=== PATIENT | female | born 1955 | race Caucasian/White ===

== ENCOUNTER 2024-01-25 07:33 | Outpatient (REF) | payer MEDICARE, SELFPAY ==
--- NOTE | ~2024-01-25 | MM_ITS ---
EXAMINATION: MM SCREENING DIGITAL BREAST TOMOSYNTHESIS, BILATERAL CLINICAL INFORMATION: Screening. Asymptomatic. COMPARISON: Mammography: Available prior examinations TECHNIQUE: Digital breast tomosynthesis is performed in both the craniocaudal and mediolateral oblique views along with computer-aided detection (CAD). Synthesized 2D images are generated from the tomosynthesis. FINDINGS: There are scattered areas of fibroglandular density (ACR BI-RADS breast composition Category b). There are no significant masses, abnormal calcifications, or other abnormalities. MM/MM tomosynthesis screening BI IMPRESSION: No mammographic evidence of malignancy. ASSESSMENT: BI-RADS BI-RADS 1 - Negative RECOMMENDATION: Routine annual mammography screening. 1 year F/U This examination should not preclude the clinical evaluation of a suspicious palpable abnormality. This patient's information was entered into a reminder system with a target due date for their next mammogram. Electronically signed by: Nisreen Ramos DO 02/19/2024 10:02 AM TYR[facility]
== END 2024-01-25 07:34 | disposition home or self-care (01) ==
LOC: HO.MAMMO 07:33
PROVIDERS: PCP Internal Medicine; Visit Provider Internal Medicine
DX: Z12.31 Encounter for screening mammogram for malignant neoplasm of breast (principal)
CPT/HCPCS: 77063; 77067

== ENCOUNTER → 2024-01-25 07:45 | Outpatient (BNV) | payer MEDICARE, SELFPAY | PROVIDERS: PCP Internal Medicine; Visit Provider Internal Medicine | DX: Z12.31 Encounter for screening mammogram for malignant neoplasm of breast (principal) | CPT/HCPCS: 77063; 77067 ==

== ENCOUNTER 2024-04-26 09:53 | Outpatient (AMB) | payer MEDICARE, SELFPAY ==
--- NOTE | 2024-04-26 09:59 | MHC.PC.OV ---
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 Intake Note: New patient visit Insurance Underwriter Sales Required: No Allergies No Known Allergies Allergy (Verified 04/26/24 10:00) Tobacco use date assessed: 04/26/24 Fall risk assessment: No Falls in past year Last assessed Fall Risk: 04/26/24 Dental Screening Dental Screen Date: 04/26/24 Did you have a dental visit in the last 12 months?: Yes Did you have a dental problem in the last 6 months where you did not have access to dental care?: No Was dental information given to patient?: Patient has dentist HPI HPI Comments History of Present Illness Details 69 year old female with a past medical history of type 2 diabetes, hypertension, hyperlipidemia, depression presenting to [facility] Type 2 diabetes: on ozempic 0.5mg, jardiance, metformin. Hemoglobin A1C 6.7%. Goes to [facility] with exam. No neuropathy. No issues with yeast infection. Takes glucose reading once a day fasting-?one touch/freestyle CV: On losartan 25mg daily, pravastatin 40mg daily. Denies chest pain, shortness of breath. Colonoscopy about 7 years ago. Mammogram: 01/25/2024-good No longer seeing technology specialist-stopped pap 65. ROS CONSTITUTIONAL: Denies weight loss, fever and chills. HEENT: Denies changes in vision and hearing. RESPIRATORY: Denies SOB and cough. CV: Denies palpitations and CP GI: Denies abdominal pain, nausea, vomiting and diarrhea. : Denies dysuria and urinary frequency. MSK: Denies new myalgia and joint pain. SKIN: Denies rash and pruritus. NEUROLOGICAL: Denies headache PSYCHIATRIC: Denies recent changes in mood. PHYSICAL EXAM: GENERAL: Alert and oriented x 3. NAD EYES: EOMI. Anicteric. HENT: Moist mucous membranes. No scleral icterus. No cervical lymphadenopathy. LUNGS: Clear to auscultation bilaterally. CARDIOVASCULAR: Regular rate and rhythm. No murmur. No JVD. ABDOMEN: Soft, non-tender +bs EXTREMITIES: No edema. Non-tender. SKIN: No rashes or lesions. Warm. NEUROLOGIC: No focal neurological deficits. CN II-XII grossly intact PSYCHIATRIC: Cooperative. 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 1. Little interest or pleasure in doing things: not at all 2. Feeling down, depressed, or hopeless: not at all 3. Trouble falling or staying asleep, or sleeping too much: not at all 4. Feeling tired or having little energy: not at all 5. Poor appetite or overeating: not at all 6. Feeling bad about yourself - or that you are a failure or have let yourself or your family down: not at all 7. Trouble concentrating on things, such as reading the newspaper or watching television: not at all 8. Moving or speaking so slowly that other people could have noticed. Or the opposite - being so fidgety or restless that you have been moving around a lot more than usual: not at all 9. Thoughts that you would be better off or of hurting yourself in some way: not at all Total score: 0 Depression Screening Interpretation: Negative Depression Screening Done: Yes 74254 - PHQ-9 Billing: Yes Source: Developed by Drs. Sid Figueroa, Merced Horton, Leon Harrington and colleagues, with an educational arcenio from [employer] Thrive Questionnaire Date Thrive assessed: 04/23/24 I am a: Patient What is your living situation today?: I have a steady place to live Within the past 12 months, did the food you bought not last and you didn't have the money to get more?: Never true Within the past 12 months, did you worry whether your food would run out before you got money to buy more?: Never true Do you have trouble paying for medicines?: No Do you have trouble getting transportation to medical appointments?: No Do you have trouble paying your heating and electricity bill?: No Do you have trouble taking care of your child, family member or friend?: No Do you have trouble with day-to-day activities such as bathing, preparing meals, shopping, managing finances, etc.?: No Are you currently unemployed and looking for a job?: No Are you interested in more education?: No Currently or been in a relationship where the following occur: No concerns reported THRIVE Score: 0 AUDIT C Alcohol Use Questionnaire (AUDIT-C) 1. How often do you have a drink containing alcohol?: Never Total Score: 0 TERRENCE-7 AMB Questionnaire TERRENCE-7 Date TERRENCE - 7 assessed: 04/26/24 Feeling nervous, anxious, or on edge: 0 = Not at all Not being able to stop or control worryin = Not at all Worrying too much about different things: 0 = Not at all Trouble relaxin = Not at all Being so restless that it is hard to sit still: 0 = Not at all Becoming easily annoyed or irritable: 0 = Not at all Feeling afraid as if something awful might happen: 0 = Not at all Total TERRENCE-7 score (0-4 normal; 5-9 mild; 10-14 moderate; 15-21 severe): 0 Source: Developed by Drs. Sid Figueroa, Merced Horton, Leon Harrington and colleagues, with an educational arcenio from [employer] TERRENCE-7 Assessment Billing TERRENCE-7 Assessment Tool: TERRENCE-7 Assessment 69597 Physical exam (Primary Care) Vital Signs: Last Vital Signs Pulse 96 04/26/24 10:07 BP 116/78 04/26/24 10:07 Pulse Ox 98 04/26/24 10:07 Oxygen Delivery Method Room Air 04/26/24 10:07 BMI result Body Mass Index 20.4 Tobacco/Smoking Status: Tobacco use Status Tobacco use date assessed 04/26/24 04/26/24 10:13 Patient Tobacco Use Status Never used Tobacco 04/26/24 10:13 e-Cigarette/Vaping Use Never Used 04/26/24 10:13 Depression Screening Interpretation: Negative Thrive Assessment: Date of Thrive Assessment Date Thrive assessed 04/23/24 04/26/24 10:13 Currently or been in a relationship where the following occur: No concerns reported Results AMB Hemoglobin A1c AMB Hemoglobin A1c 6.7 % Last Edit by Coral Nobles CMA on 04/26/24 10:22 Coding Level of Care Code New Pt Level 4 (14038) Complex EM visit Add On G2211 Diagnoses Type 2 diabetes mellitus without complication, without long-term current use of insulin E11.9 Diabetes mellitus medical terminologist insulin use: without detention use Diabetes mellitus complication status: without complication Primary hypertension I10 Hypertension type: primary hypertension Mixed hyperlipidemia E78.2 Hyperlipidemia type: mixed hyperlipidemia Additional Codes TERRENCE-7 Assessment Billing - TERRENCE-7 Assessment Tool: TERRENCE-7 Assessment 55958 ([id number]) PHQ-9 - 70154 - PHQ-9 Billing: Yes ([id number]) Assessment & Plan Assessment & Plan (1) Type 2 diabetes mellitus: Code(s): E11.9 - Type 2 diabetes mellitus without complications Category: Medical Qualifiers: Diabetes mellitus medical terminologist insulin use: without detention use Diabetes mellitus complication status: without complication Qualified Code(s): E11.9 - Type 2 diabetes mellitus without complications Plan: controlled, continue current medication (2) Hypertension: Code(s): I10 - Essential (primary) hypertension Category: Medical Qualifiers: Hypertension type: primary hypertension Qualified Code(s): I10 - Essential (primary) hypertension Plan: controlled on current medication (3) Hyperlipidemia: Code(s): E78.5 - Hyperlipidemia, unspecified Category: Medical Qualifiers: Hyperlipidemia type: mixed hyperlipidemia Qualified Code(s): E78.2 - Mixed hyperlipidemia Plan: continue statin therapy Plan 69 year old to establish care. past medical, surgical, social and family history reviewed. Chart updated. Orders: Orders AMB Hemoglobin A1c Today E11.9 - Type 2 diabetes mellitus without complications Comprehensive Met. Panel 3 Months E11.9 - Type 2 diabetes mellitus without complications, E78.5 - Hyperlipidemia, unspecified, I10 - Essential (primary) hypertension Lipid Panel 3 Months E11.9 - Type 2 diabetes mellitus without complications, E78.5 - Hyperlipidemia, unspecified, I10 - Essential (primary) hypertension Hemoglobin A1c 3 Months E11.9 - Type 2 diabetes mellitus without complications, E78.5 - Hyperlipidemia, unspecified, I10 - Essential (primary) hypertension Complete Blood Count Auto Diff 3 Months E11.9 - Type 2 diabetes mellitus without complications, E78.5 - Hyperlipidemia, unspecified, I10 - Essential (primary) hypertension Microalbumin, Random (w Creat) 3 Months E11.9 - Type 2 diabetes mellitus without complications, E78.5 - Hyperlipidemia, unspecified, I10 - Essential (primary) hypertension Medications: New semaglutide 0.5 mg (0.736 mL) subcut QWEEK 3 mL 3RF
[2024-04-26 10:07] VITALS: BP 116/78; PULSE 96; O2SAT 98; BMI 20.4
== END 2024-04-26 10:40 | disposition home or self-care (01) ==
PROVIDERS: PCP Internal Medicine; Visit Provider Internal Medicine
DX: E11.9 Type 2 diabetes mellitus without complications (principal); I10 Essential (primary) hypertension; E78.2 Mixed hyperlipidemia

== ENCOUNTER → 2024-04-26 09:53 | Outpatient (BNVA) | payer MEDICARE, SELFPAY | PROVIDERS: PCP Internal Medicine; Visit Provider Internal Medicine | DX: E11.9 Type 2 diabetes mellitus without complications (principal); I10 Essential (primary) hypertension; E78.2 Mixed hyperlipidemia; Z79.899 Other long term (current) drug therapy | CPT/HCPCS: 83036; 96127; 99202 ==

== ENCOUNTER 2024-07-08 07:56 | Outpatient (RCR) | payer MEDICARE, SELFPAY ==
--- NOTE | 2024-07-08 08:27 | MHC.OT.DC ---
[address] [phone] F: [phone] Occupational Therapy Discharge Note Patient Name: Catherine Ponce Provider: Jane Brady Diagnosis: L Ring finger fasciectomy Date of Surgery: 06/08/24 Date of Evaluation: 06/10/24 Date of Discharge: Treatments to Date: 9 Cancellations to Date: No Shows to Date: Discharge Status: Achieved Goals Discharge Summary: Pt tolerated therapy well ; [id number]; she has met her therapy goals and agrees w/ today's d/charge. Pt was a pleasure to work with! Electronically Signed By: Ashley Hoang OTR/L Reviewed/agree with student documentation: Therapist: Please Sign and return to therapist, thank you for your referral.
== END 2024-07-08 09:09 | disposition home or self-care (01) ==
LOC: HO.OT 07:56
PROVIDERS: PCP Internal Medicine; Visit Provider Orthopaedic Surgery
DX: Z98.890 Other specified postprocedural states (principal)
CPT/HCPCS: 29130; 97035; 97110; 97140; 97166; 97530; 97535; 97760

== ENCOUNTER 2024-07-27 08:03 | Outpatient (REF) | payer MEDICARE, SELFPAY ==
--- OUTSIDE RECORDS SUMMARY | 2024-07-27 08:16 | XMS_ITS | Data Portability ---
Author Organization [facility] [address] Address [address] [place] [address] Care Team Providers Care Hvac Engineering Technician Name Role Phone DARINEL CHOWDHURY Primary Care Provider [phone] Assessment No assessment recorded. Plan of Treatment Reminders Order Date Submit Date Provider Last Modified By Organization Details Last Modified Time Details Appointments None recorded. Lab None recorded. Referral gynecologis t referral 2022 023 [email or web address] Not available 3 09:17:23 Procedures None recorded. Surgeries None recorded. Imaging None recorded. Medication Orders None recorded. Patient TargetsNo targets recorded. Patient Instructions Encounter Date Encounter Id Patient Instructions Last Modified By Organization Details Last Modified Time 11/26/2022 [id number] Skin Cyst: Care Instructions [email or web address] Not available 11/26/2022 09:15:35 Reason for Referral Junior Systems Analyst Referral for Ep idermoid cyst of skin Right Labia Cyst - Appears Benign. Follow up if does not open on it's own. Referring Physician: Alisson Corbett, Urgent Care, Encounter Date: 11/26/2022 Problems Name Problem SNOMED Code Status Onset Date Resolution Date Notes Provider Name and Address Organization Details Recorded Time Diabetes mellitus 98154859 Active 2022 MANNY Aguayo [facility] 3 08:36:43 Hypertensive disorder 07908619 Active 2022 MANNY Aguayo [facility] 3 08:36:52 Problem Notes None recorded. Medical Equipment None Reported. Allergies No known drug allergies Medications Name Sig Start Date Stop Date Status Note LastModified by Organization Details LastModified Time lisinopril active Not Available Not Av ailable Not Available pravastatin active Not Available Not A vailable Not Available glipizide active Not Available Not Rachel ilable Not Available metformin active Not Available Not Rachel ilable Not Available Victoza 2-Berlin active Not Available Not Available Not Available Vitals Date Recorded Body height Body mass index (BMI) Body weight Pain severity - 0-10 verbal numeric rating [Score] - Reported Respiratory rate Heart rate Oxygen saturation Oxygen saturation in Arterial blood by Pulse oximetry Body temperature Systolic blood pressure Diastolic blood pressure Provider Name and Address Organization Details Last Updated DateTime 3 161.29 cm 24.2 kg/m2 24312.3 4 g 0 18 /min 101 /min 96 % 96 % 98.4 [degF] 144 mm[Hg] 90 mm[Hg] Jordana Carbajal PA [facility] 3 08:39:37 Date Recorded Systolic blood pressure Diastolic blood pressure Provider Name and Address Organization Details Last Updated DateTime 11/26/2022 130 mm[Hg] 86 mm[Hg] MANNY PAVON [facility] [place], [address], PA - [facility] 11/26/2022 09:15:56 Social History Question Answer Notes LastModified by Organizat ion Details LastModified Time Tobacco Smoking Status Former Smoker Jordana coffey PA [facility] 11/26/2022 08:37:59 What Is Your Level Of Alcohol Consumption? Occasional Information not available 11/26/2022 How Many Times Per Week Do You Consume Alcohol? 1-2 Times Per Week Information not available 11/26/2022 When Did You Quit Smoking? 16+yearssincel astcigarette Information not available 11/26/2022 Do You Use Any Illicit Or Recreational Drugs? No Information not available 11/26/2022 Have You Recently Traveled Abroad? No Information not available 11/26/2022 Do You Or Have You Ever Used Any Other Forms Of Tobacco Or Nicotine? No Information not available 11/26/2022 Sex: Unknown Functional Status None recorded. Mental Status None recorded. Family History Relationship Description Onset Age of this Age Resolved Age Notes LastModified by Organization Details LastModified Time Sister Malignant tumor of breast [email or web address] Not available 2022 08:37:08 Father Myocardial infarction [email or web address] Not available 11/26 08:37:34 Medical History No medical history recorded. Gynecological HistoryNo gynecological history recorded. Obstetrics History GPAL:G 0 P 0 0 0 0 Immunizations Vaccine Type Date Status Note Provider Nam e and Address Organization Details Recorded Time zoster recombinant 2 completed Jordana Monfette null, PA - [facility] 11/26/2022 08:35:08 COVID-19, mRNA, LNP-S, PF, 30 mcg/0.3 mL dose 1 completed Jordana Monfette null, PA - [facility] 11/26/2022 08:35:08 COVID-19, mRNA, LNP-S, PF, 30 mcg/0.3 mL dose 1 completed Jordana Monfette null, PA - [facility] 11/26/2022 08:35:08 COVID-19, mRNA, LNP-S, PF, 30 mcg/0.3 mL dose 1 completed Jordana Monfette null, PA - [facility] 11/26/2022 08:35:08 COVID-19, mRNA, LNP-S, PF, 30 mcg/0.3 mL dose 1 completed Jordana Monfette null, PA - [facility] 11/26/2022 08:35:08 COVID-19, mRNA, LNP-S, PF, 30 mcg/0.3 mL dose 1 completed Jordana Monfette null, PA - [facility] 11/26/2022 08:35:08 COVID-19, mRNA, LNP-S, PF, 30 mcg/0.3 mL dose 2 completed Jordana Monfette null, PA - [facility] 11/26/2022 08:35:08 COVID-19, mRNA, LNP-S, PF, 30 mcg/0.3 mL dose, tessie-sucrose 2 completed Jordana Monfette null, PA - [facility] 11/26/2022 08:35:08 COVID-19, mRNA, LNP-S, bivalent, PF, 50 mcg/0.5 mL or 25mcg/0.25 mL dose 2 completed Jordana Monfette null, PA - [facility] 11/26/2022 08:35:08 pneumococcal polysaccharide PPV23 2 completed Jordana Monfette null, PA - [facility] 11/26/2022 08:35:08 pneumococcal polysaccharide PPV23 0 completed Jordana Monfette null, PA - [facility] 11/26/2022 08:35:08 Tdap 0 completed Jordana Monfette null, PA - [facility] 11/26/2022 08:35:08 Tdap 0 completed Jordana Monfette null, PA - [facility] 11/26/2022 08:35:08 Pneumococcal conjugate PCV 13 2 completed Jordana Monfette null, PA - [facility] 11/26/2022 08:35:08 zoster live 6 completed Jordana Monfette null, PA - [facility] 11/26/2022 08:35:08 Influenza, split virus, trivalent, preservative 8 completed Jordana Monfette null, PA - [facility] 11/26/2022 08:35:08 Influenza, split virus, trivalent, preservative 2 completed Jordana Monfette null, PA - [facility] 11/26/2022 08:35:08 Past Encounters Encounter ID Performer Location Encounter Start Date Encounter Closed Date Diagnosis/Indication Diagnosis SNOMED-CT Code Diagnosis ICD10 Code Diagnosis Note [id number] [address] [address] 11/16/2021 08:17:34 11/16/2021 09:20:57 [id number] MANNY PAVON [address] [address] [address] 11/26/2022 08:10:16 11/26/2022 09:17:23 Epidermoid cyst of skin 263042897 L72.0 In the right labia majora. This is not a Bartholin gland cyst. In this area, we would want to try allow this to be expressed on it's own. To do this I would suggest:1. Bathtub hot water with warm Epsen salts or a heating pad.2. After about 20 minutes of heat you can lightly try to express this.3. Don't squeeze hard.4. When it opens you probably will get a white stringy material that comes out. This is the solidified sweat we were talking about.5. Your skin appears normal - no ulceration or abnormal color. I would suggest setting up an appointmen t with a Gynecologi st so they can evaluate the area and potential I&D the area if it does now open. These types of issues may continue to grow in size as time goes on because the sweat glands will continue to make sweat. Sometimes at a point when they get larger - they will get painful and develop an infection. Please don't hesitate to call me if you have any questions. I suggest going to the ER if you develop:1. Significan t pain or swelling2. Fever > 100.73. Lymph node in your groin that is painful.4. Inability to urinate. Thank you for using [employer] [facility]! Health Concerns Section Related Observation LastModified by Organization Yoni melendez LastModified Time None Recorded Concern Status LastModified by Organization Details LastModified Time None Recorded Advance Directives Directive None Recorded Payers Encounter Date Sequence Insurance Name Policy Number Policy Zamarripa Covered Member ID Zamarripa Member ID Guarantor Name 11/16/2021 1 [facility] (MEDICARE REPLACEMENT/A DVANTAGE - HMO) [id number] [id number] Catherine Smcarrie 11/16/2021 2 MEDICARE B-[place]: [facility] [employer] Catherine Ponce [id number] Catherine carrie 11/26/2022 1 [facility] (MEDICARE REPLACEMENT/A DVANTAGE - HMO) [id number] Catherine Sumner carrie [id number] Catherine carrie 11/26/2022 2 MEDICARE B-[place]: [facility] [employer] Catherine Sumner carrie [id number] Catherine Ponce Notes Date Note Type Note Provider Name and Address Organization Details Recorded Time 3 text/html Vaginal DischargeReported bypatient.source of patient informationInformation obtained from patient Location:vaginal Quality:No pain Onset/Timing:sudden Context:not sexually active; no prior history of STDs Modifying Factors:Did try warm water. Associated Symptoms:no flank pain; no blood in the urine; no pain during urination; no vaginal discharge; no urgencyNotes:The patient states she was taking a shower about 4 days ago and felt a lump in the end of the labia close to the perinum. Does not have any pain or discharge. The patient reports she has not had this in the past. The patient still has ovary and uterus. Actually no surgeries. Sister did pass away from breath cancer. Last pap was 5 years. Never had any abnormal paps. No vaginal discharge or bleeding. No urinary symptoms. MANNY PAVON [facility] [place], [address], PA - [facility] 11/26/2022 09:18:25 OBGyn Episode No OBEpisode recorded.
--- OUTSIDE RECORDS SUMMARY | 2024-07-27 08:16 | XMS_ITS | Clinical Summary ---
Author Organization [facility] Address [address] [place] [address] Phone Care Team Providers Care Automation Consultant Name Role Phone Simran Plaza MD Primary Care Provider [phone] Allergies No known active allergies Medications Aspirin Buf,CaCarb-MgCar b-MgO, 81 MG tablet Take 81 mg by mouth 1 (one) time each day Active glipiZIDE (GLUCOTROL) 10 MG tablet Take one tablet by mouth twice a day before meals 11/01/2020 Active liraglutide (VICTOZA) 18 MG/3ML injection Inject 0.6 mg under the skin 11/20/2020 Active metFORMIN (GLUCOPHAGE) 1000 MG tablet Take 1 tablet by mouth 2 (two) times a day with meals 10/11/2020 Active pravastatin (PRAVACHOL) 40 MG tablet Take 1 tablet by mouth 1 (one) time each day 10/11/2020 Active prednisoLONE acetate (PRED FORTE) 1 % ophthalmic suspension 03/26/2021 Active losartan (Cozaar) 25 MG tablet Take 1 tablet (25 mg total) by mouth 1 (one) time each day 30 tablet 11 03/28/2021 Active Active Problems Problem Noted Date Diagnosed Date Family history of malignant neoplasm of breast in first degree relative 03/30/2020 Type 2 diabetes mellitus 03/27/2020 Overview (01/17/2021): Mild nonproliferative diabetic retinopathy noted on bilateral eye examination March 2020 Dyslipidemia 08/13/2018 Immunizations Name Administration Dates Next Due Influenza TIV (IM) 03/15/2018 Pfizer SARS-COV-2 07/04/2020,06/03/2020 Pneumococcal Polysaccharide 05/09/2020, 2 Tdap 05/09/2020,01/29/2010 Zoster 06/05/2015 Family History Medical History Relation Comments Diabetes Brother Cancer Sister Relation Status Comments Brother Sister Social History Tobacco Use Types Packs/Day Years Used Date Smoking Tobacco: Former Smokeless Tobacco: Never Alcohol Use Standard Drinks/Week Comments Yes 0 (1 standard drink = 0.6 oz pur e alcohol) Comments Unknown Sex and Gender Information Value Date Recorded Sex Assigned at Not on file Legal Sex Female 1:14 PM EDT Gender Identity Not on file Sexual Orientation Not on file Last Filed Vital Signs Vital Sign Reading Time Taken Comments Blood Pressure 142/76 03/28/2021 4:12 PM EDT Pulse 78 03/28/2021 4:12 PM EDT Temperature - - Respiratory Rate - - Oxygen Saturation 98% 03/28/2021 4:12 PM EDT Inhaled Oxygen Concentration - - Weight 60.8 kg (134 lb) 03/28/2021 4:12 PM EDT Height 165.1 cm (5' 5 ) 03/28/2021 4:12 PM EDT Body Mass Index 22.3 03/28/2021 4:12 PM EDT Plan of Treatment Health Maintenance Due Date Last Done Comments Breast Cancer Screening 1955 Colorectal Cancer Screening: Annual FOBT 2004 Colorectal Cancer Screening: Colonoscopy 2004 Colorectal Cancer Screening: Sigmoidoscopy 2004 Diabetes: Ophthalmology Exam 12/07/2020 Diabetes: Pedal Pulse Checked 12/07/2020 Diabetes: Sensory Foot Exam 12/07/2020 Diabetes: Visual Foot Exam 12/07/2020 Diabetes: Hemoglobin A1C 04/16/202101/14/2 021, 09/10/2020 Pneumococcal Vaccine: 65+ Years (2 of 2 - PCV) 05/09/2021 05/09/2020, 07/08/2011 Influenza Vaccine (#1) 2024 03/15/2018 Hepatitis B Vaccine Aged Out No longe r eligible based on patient's age [id number] [facility] MEDICARE [facility] MEDICARE Care Teams Automation Consultant Relationship Specialty Start Date End Date Simran Plaza MD [address] [place] [address] PCP - General Internal Medicine 02/25/21
--- OUTSIDE RECORDS SUMMARY | 2024-07-27 08:16 | XMS_ITS | Clinical Summary ---
Author Organization 175 [facility] Address [address] [place] [address] Phone Care Team Providers Care Plastic Jig And Fixture Builder Name Role Phone Denise Gerard MD Primary Care Provider [phone] Allergies No known active allergies Medications pravastatin (PRAVACHOL) 40 mg tablet Take 1 tablet (40 mg total) by mouth 1 (one) time each day. 4 Active losartan (COZAAR) 25 mg tablet Take 1 tablet (25 mg total) by mouth 1 (one) time each day. 4 Active metFORMIN (GLUCOPHAGE) 1,000 mg tablet Take 1 tablet (1,000 mg total) by mouth 2 (two) times a day with meals. 3 Active lancets (OneTouch Delica Plus Lancet) 33 gauge USE TO TEST SUGARS ONCE DAILY 3 Active blood sugar diagnostic (OneTouch Verio test strips) test strip USE TO TEST SUGARS ONCE DAILY 3 Active pen needle, diabetic (BD Ultra-Fine Short Pen Needle) 31 gauge x 5/16 needle USE ONE PEN NEEDLE DAILY TO ADMINISTER VICTOZA 3 Active blood-glucose meter (ONETOUCH VERIO FLEX START MISC) 1 Device by Not Applicable route. 3 Active aspirin 81 mg EC tablet Take 1 tablet (81 mg total) by mouth. Active acetaminophen (TYLENOL 8 HOUR) 650 mg 8 hr tabletIndication s:Palmar fascial fibromatosis (dupuytren) Take 1 tablet (650 mg total) by mouth every 8 (eight) hours if needed for mild pain. Do not crush, chew, or split. 30 tablet 4 Active oxyCODONE (ROXICODONE) 5 mg immediate release tabletIndication s:Palmar fascial fibromatosis (dupuytren) Take 1 tablet (5 mg total) by mouth every 6 (six) hours if needed for severe pain for up to 6 doses. Max Daily Amount: 20 mg 6 tablet 4 Active Jardiance 10 mg tablet TAKE 1 TABLET BY MOUTH DAILY 100 tablet 5 Active semaglutide (OZEMPIC) 0.25 mg or 0.5 mg (2 mg/3 mL) injection penIndications:T ype 2 diabetes mellitus with other specified complication, without long-term current use of insulin ([facility]) Inject 0.5 mg under the skin every 7 (seven) days. 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 March 2020 Dyslipidemia 08/13/2018 Encounters Date Type Department Care Team Description 06/20/2024 8:45 AM EST Office Visit Orthopedic Surgery - [place] 175 [facility] [address] [place] [id number] Antonieta Zaman PA Surgery follow-up (Primary Dx) 06/08/2024 1:18 PM EST Anesthesia Event [address] [id number] Surya Layton MD Abrokwah, Foster Myles G, SEUN 06/08/2024 12:15 PM EST - 06/08/2024 1:45 PM EST Surgery [facility] OR [address] [place] [phone] Jane Brady MD RELEASE PALMAR FASCIA LEFT [[id number] (CPT??)] 06/08/2024 10:22 AM EST - 06/08/2024 4:55 PM EST Hospital Encounter [facility] Main OR [address] [place] [address] Jane Brady MD Palmar fascial fibromatosis (dupuytren); Palmar fascial fibromatosis (dupuytren) Discharge Disposition: Home or Self Care 05/31/2024 9:30 AM EST Consult Orthopedic Surgery - [place] 175 [facility] [address] [place] [address] Jane Brady MD Palmar fascial fibromatosis (dupuytren) (Primary Dx) from Last 3 Months Immunizations Name Administration Dates Next Due Influenza trivalent, with pr eservative (Fluzone; Afluria) 6mo and older 03/15/2018 Influenza, Unspecified 04/09/2023,03/06/2022, [employer] SARS-CoV-2 COVID-19, mRNA, LNP-S, preservative free 03/26/2022,09/30/2021,03/13/2021 Pneumococcal conjugate 13 va lent (Prevnar 13, PCV13) 2mo and older 01/08/2022 Pneumococcal polysaccharide 23 valent (Pneumovax 23) 2yo and older 05/09/2020,07/08/2011 Tdap Tetanus diptheria acell ular pertussis (Boostrix; Adacel) 7yo and older 05/09/2020,01/29/2010 Zoster Live 06/05/2015 Zoster recombinant (Shingrix ) 19yo and older 03/26/2022 Surgical History Surgery Date Site/Laterality Comments OTHER SURGICAL HISTORY PROCEDURE: DENIES PREVIOUS SURGERY COLONOSCOPY Medical History Medical History Date Comments Diabetes mellitus type 2, co ntrolled, without complications (CMS/HCC) DX:Diabetes mellitus t ype 2, controlled, without complications (HCC) Dyslipidemia DX:Dyslipidemia Uncontrolled type 2 diabetes mellitus with hyperglycemia (CMS/HCC) 02/24/2019 DX:Uncontrolled type 2 di abetes mellitus with hyperglycemia (HCC) Dupuytren's disease of finge r with contracture LEFT RING FINGER Family History Medical History Relation Name Comments Diabetes Brother ? pancreatic ca Breast cancer Sister Diabetes Uncle Colon cancer Neg Hx Ovarian cancer Neg Hx Pancreatic cancer Neg Hx Prostate cancer Neg Hx Uterine cancer Neg Hx Relation Name Status Comments Brother Sister Uncle Social History Tobacco Use Types Packs/Day Years Used Date Smoking Tobacco: Former Cigarettes 1 7 0 06/01/1968 - 06/01/1975 Smokeless Tobacco: Never Alcohol Use Standard Drinks/Week Comments Not Currently 0 (1 standard drink = 0.6 oz pur e alcohol) Comments No Sex and Gender Information Value Date Recorded Sex Assigned at Female 06/07/2024 8:29 AM EST Legal Sex Female 6:47 AM EST Gender Identity Female 06/07/2024 8:29 AM EST Sexual Orientation Straight 06/08/2024 10 :21 AM EST Obstetrics History Last Filed Vital Signs Vital Sign Reading Time Taken Comments Blood Pressure 123/80 06/08/2024 3:50 PM EST Pulse 90 06/08/2024 3:50 PM EST Temperature 36.2 ??C (97.2 ??F) 06/08/2024 3:22 PM ES T Respiratory Rate 20 06/08/2024 3:50 PM EST Oxygen Saturation 96% 06/08/2024 3:50 PM EST Inhaled Oxygen Concentration - - Weight 50.8 kg (112 lb) 06/20/2024 8:30 AM EST Height 162.6 cm (5' 4.02 ) 06/20/2024 8:30 AM ES T Body Mass Index 19.22 06/20/2024 8:30 AM EST Plan of Treatment Upcoming Encounters Date Type Department Care Team (Late st Contact Info) Description 08/02/2024 9:45 AM EST Office Visit Orthopedic Surgery - [place] [address] [phone] Jane Brady MD [address] [phone] Health Maintenance Due Date Last Done Comments Diabetes: Annual GFR (Glomerular Filtration Rate) 1955 RSV Immunization Patients 60+ Years Old (1 - Risk 60-74 years 1-dose series) 2015 Medicare Annual Wellness Visit 05/10/2022 Social Influencers of Health Screening 05/10/2022 Hypertension/CHF/CAD Annual BMP Blood Test 05/11/2022 Zoster Vaccines (3 of 3) 05/21/2022 03/26/2022, 09/2015 Diabetes: Annual Urine Albumin-Creatinine Ratio (uACR) 09/02/2023 09/01/2022 Depression Screening 11/29/2023 11/28/2022 Diabetes: Annual Foot Exam 01/20/2024 01/19/2023 Diabetes: Blood Sugar Control Test (HGBA1C) 01/25/2024 07/27/2023 Influenza Vaccine (#1) 2024 , 05/01/2022, 03/06/2022, Additional history exists Diabetes: Annual Retina Eye Exam 04/08/2024 04/08/2023 Breast Cancer Screening 01/16/2025 01/17/20 23, 01/13/2023, 01/08/2022, Additional history exists Falls Risk Assessment 06/08/2025 06/08/2024 Colorectal Cancer Screening: Colonoscopy 01/07/2027 01/07/2017 Cholesterol Screening (Lipid Panel) 04/24/2028 04/24/2023 DTaP,Tdap,and Td Vaccines (3 - Td or Tdap) 05/09/2030 05/09/2020, 01/29/2010 Osteoporosis Screening (Bone Density Screening) 09/13/2033 09/14/2023, 03/27/2021 Hepatitis C Screening Addressed 01/03/2019 Overri dden with the intention of not completing the topic Pneumococcal Vaccine: 50+ Years Completed 01/08/2022, 05/09/2020, 07/08/2011 COVID-19 Vaccine Completed 2024, , 03/26/2022, Additional history exists HIB Vaccines Aged Out No longer eligi ble based on patient's age to complete this topic HPV Vaccines Aged Out No longer eligi ble based on patient's age to complete this topic Hepatitis A Vaccines Aged Out No long er eligible based on patient's age to complete this topic Hepatitis B Vaccines Aged Out No long er eligible based on patient's age to complete this topic IPV Vaccines Aged Out No longer eligi ble based on patient's age to complete this topic MMR Vaccines Aged Out No longer eligi ble based on patient's age to complete this topic Meningococcal ACWY Vaccine Aged Out N o longer eligible based on patient's age to complete this topic Meningococcal B Vacine Aged Out No lo nger eligible based on patient's age to complete this topic RSV Immunization Patients Under 20 months Aged Out No longer eligible based on patient's age to complete this topic Varicella Vaccines Aged Out No longer eligible based on patient's age to complete this topic Procedures Procedure Name Priority Date/Time Associated Diagnosis Comments TISSUE EXAM Routine 06/08/2024 1:49 PM EST Palmar fascial fibromatosis (dupuytren) FL FASCIECTOMY PARTIAL PALMAR W/RELEASE SINGLE DIGIT INCL PROXIMAL IPJ 06/08/2024 1:17 PM EST Palmar fascial fibromatosis (dupuytren) Case Notes Nerve block Supraclavicular,LEAD HAND TH AN NERVE BLOCK AXILLARY (NO CHARGE) Routine 06/08/2024 1:05 PM EST TH AN NERVE BLOCK AXILLARY (CHARGE) Routine 06/08/2024 1:05 PM EST POCT GLUCOSE BLOOD Routine 06/08/2024 10 :40 AM EST DXA BONE DENSITY STUDY 1+ SITS AXIAL SKEL Routine 09/14/2023 9:58 AM EDT Encounter for screening for osteoporosis DIAGNOSTIC MAMMOGRAPHY WITH CAD UNILATERAL Routine 01/16/2023 2:52 PM EDT Other abnormal and inconclusive findings on diagnostic imaging of breast from Last 3 Months or Most Recently Relevant to Health Maintenance Results * Tissue exam (06/08/2024 1:49 PM EST) Final Diagnosis Soft tissue, left hand-Fasciotom y/Fasciectomy: -FIBROMATOSIS, CONSISTENT WITH DUPUYTREN CONTRACTURE 06/09/2024 2:16 PM EST [facility] Gross Description A. Hand, Left, dupuytren's fascia left hand: Labeled Dupuytren's hand L . Received in formalin is a 1.8 x 1.8 x 0.3 cm aggregate of irregular pink-white dense fibrous tissue. The larger fragments are sectioned. The cut surfaces are comprised of dense gerardo-white fibrous tissue. The specimen is entirely submitted in one cassette, multiple pieces. MATHIEU 06/09/2024 2:16 PM EST [facility] Disclaimer Unless otherwise specified, all tissue is 10% NB formalin fixed and paraffin embedded. 06/09/2024 2:16 PM EST [facility] Tissue Structure of left hand / Unknown 06/08/2024 1:49 PM EST 06/08/2024 3:58 PM EST us Jane Brady MD LAB PATHOLOGY ORDERABLES Aline mercedes Result [facility] ([facility]) [facility] [address] [place] [address], [place] [phone] * TH AN NERVE BLOCK AXILLARY (CHARGE), TH AN NERVE BLOCK AXILLARY (NO CHARGE) (06/08/2024 1:05 PM EST) Narrative Xander Valladares MD - 06/08/2024 1:05 PM EST Xander Valladares MD ? 06/08/2024 ??1:18 PM Peripheral Block Patient location during procedure: pre-op Start time: 06/08/2024 1:05 PM End time: 06/08/2024 1:16 PM Reason for block: post-op pain management Staffing Performed: anesthesiologist Anesthesiologist: Xander Valladares MD Preanesthetic Checklist Completed: patient identified, IV checked, site marked, risks and benefits discussed, surgical consent, monitors and equipment checked, pre-op evaluation and timeout performed Peripheral Block Patient position: supine Prep: ChloraPrep Patient monitoring: continuous pulse ox and heart rate (NIBP) Block type: axillary Laterality: left Injection technique: single-shot Guidance: ultrasound guided and Ultrasound image saved to chart Local infiltration: lidocaine Infiltration strength: 1 % Dose: 5 mL Needle Needle type: Quincke Needle gauge: 21 G Needle length: 10 cm Needle localization: ultrasound guidance (Ultrasound with tip visualized throughout) Assessment Injection assessment: negative aspiration for heme, no paresthesia on injection, incremental injection with negative aspiration q 5ml and local visualized surrounding nerve on ultrasound Paresthesia pain: none Heart rate change: no Slow fractionated injection: yes Additional Notes Tea-neural local anesthesia spread. Injectate: Ropivicaine 0.5% Volume: 20mL. 2% Lidocaine 5 cc. Sedation with meaningful contact. Additional monitoring: NiBP Ultrasound image saved to chart Block placed per surgeon request us Xander Valladares MD ANESTHESIA ORDERABLES Final Re sult * (ABNORMAL) POCT Glucose, blood (06/08/2024 10:40 AM EST) Glucose POCT 148(H) 70 - 100 mg/dL 06/08/2024 10:43 AM EST [facility] Blood Capillary blood specimen / Unknown 06/08/2024 10:40 AM EST 06/08/2024 10:44 AM EST Jane Brady MD LAB POINT OF CARE TE ST DOCKED DEVICE UNSOLICITED RESULTS Final Result [facility] [address] [place] [address], [place] [phone] * DXA BONE DENSITY STUDY 1+ SITS AXIAL SKEL (09/14/2023 9:58 AM EDT) Anatomical Region Laterality Modality Bone Densitometr y 07/29/2023 8:17 AM EST Narrative 09/14/2023 7:16 PM EDT STUDY: ??DUAL ENERGY X-RAY ABSORPTIOMETRY / DXA REASON FOR EXAM: ?? Female, 68 years old ??osteoporosis TECHNIQUE: ?? Bone Mineral Density (BMD) measurements of the lumbar spine and left hip were obtained using [employer] W (S/N [id number]). ?? COMPARISON: March 27, 2021 ?? FINDINGS: L1-L4 BMD: 1.062 g/cm2 L1-L4 T score: 0.1. ??This corresponds to Normal bone density. This represents a -0.9 % decrease in bone density compared with prior exam from March 27, 2021. Left femoral neck BMD: 0.769 g/cm2 Left femoral neck T score: -0.7. ??This corresponds to Normal bone density. Left total hip BMD: 0.975 g/cm2 Left total hip T score: 0.3. ??This corresponds to Normal bone density. This represents a 1.6 % increase in bone density compared with prior exam from March 27, 2021. * - Indicates a statistically significant change. IMPRESSION: IMPRESSION: Normal bone density Reference Information: The T-score is the number of standard deviations above or below the standard which is normal for young adults at their peak bone mineral density. The World Health Organization (WHO) interprets the T-scores as follows: At or above ??-1 SD ?Normal bone density Between -1 and -2.5 SD ??Osteopenia At or below -2.5 SD ?Osteoporosis Procedure Note Claire Garcia MD - 01/18/2024 STUDY: DUAL ENERGY X-RAY ABSORPTIOMETRY / DXA REASON FOR EXAM: Female, 68 years old osteoporosis TECHNIQUE: Bone Mineral Density (BMD) measurements of the lumbar spineand left hip were obtained using [employer] W (S/N [id number]). COMPARISON: March 27, 2021 FINDINGS: L1-L4 BMD: 1.062 g/cm2 L1-L4 T score: 0.1. This corresponds to Normal bone density. This represents a -0.9 % decrease in bone density compared with prior examfrom March 27, 2021. Left femoral neck BMD: 0.769 g/cm2 Left femoral neck T score: -0.7. This corresponds to Normal bonedensity. Left total hip BMD: 0.975 g/cm2 Left total hip T score: 0.3. This corresponds to Normal bone density. This represents a 1.6 % increase in bone density compared with prior examfrom March 27, 2021. * - Indicates a statistically significant change. IMPRESSION: IMPRESSION: Normal bone density Reference Information: The T-score is the number of standard deviations above or below thestandard which is normal for young adults at their peak bone mineral density. The World HealthOrganization (WHO) interprets the T-scores as follows: At or above -1 SD Normal bone density Between -1 and -2.5 SD Osteopenia At or below -2.5 SD Osteoporosis us Tosin Ceron MD IMG DXA PROCEDURES Final Result * DIAGNOSTIC MAMMOGRAPHY WITH CAD UNILATERAL (01/16/2023 2:52 PM EDT) Anatomical Region Laterality Modality Mammography 01/14/2023 9:07 AM EDT Narrative 01/16/2023 3:04 PM EDT This is a summary report. The complete report is available in the patient's medical record. If you cannot access the medical record, please contact the sending organization for a detailed fax or copy. History: Callback from screening for asymmetry in the lower aspect of the left breast on MLO view Study: DIAGNOSTIC MAMMOGRAPHY WITH CAD UNILATERAL LEFT Technique: Unilateral left digital diagnostic mammography is obtained and read in conjunction with computer aided detection. ??Tomosynthesis as well as 2D C-View imaging were obtained. ??Spot compression views were also obtained. Comparison: Comparison made to multiple prior, most recent January 13, 2023, and most remote August 07, 2017. Breast composition: There are scattered areas of fibroglandular density. Left breast: The asymmetry seen in the inferior breast that appeared extending towards the nipple is pliable with the spot compression, and most likely represented overlapping fibroglandular breast tissue. ??The morphology of the local parenchyma on today's images is similar to multiple prior studies as far back as 2017. IMPRESSION: Impression: Left breast: Negative, no specific mammographic evidence of malignancy. ??Normal interval follow-up is recommended in 12 months. Findings and recommendations were communicated to the patient via cath lab radiological technologist. BI-RADS: Category 1: Negative Procedure Note Claire Garcia MD - 07/07/2023 This is a summary report. The complete report is available in thepatient's medical record. If you cannot access the medical record, pleasecontact the sending organization for a detailed fax or copy. History: Callback from screening for asymmetry in the lower aspect of theleft breast on MLO view Study: DIAGNOSTIC MAMMOGRAPHY WITH CAD UNILATERAL LEFT Technique: Unilateral left digital diagnostic mammography is obtained andread in conjunction with computer aided detection. Tomosynthesis as wellas 2D C-View imaging were obtained. Spot compression views were alsoobtained. Comparison: Comparison made to multiple prior, most recent December, and most remote August 07, 2017. Breast composition: There are scattered areas of fibroglandular density. Left breast: The asymmetry seen in the inferior breast that appearedextending towards the nipple is pliable with the spot compression, andmost likely represented overlapping fibroglandular breast tissue. Themorphology of the local parenchyma on today's images is similar tomultiple prior studies as far back as 2018. IMPRESSION: Impression: Left breast: Negative, no specific mammographic evidence of malignancy.Normal interval follow-up is recommended in 12 months. Findings and recommendations were communicated to the patient viamammography technologist. BI-RADS: Category 1: Negative Belia Ash MD IMG BI PROCEDURES Final Res ult from Last 3 Months or Most Recently Relevant [place] [phone] [employer] MEDICARE Advance Directives * Full Code - Default (Latest Code Status on File) Date Activated Date Inactivated Comments 06/08/2024 10:28 AM 06/08/2024 7:29 PM This is order is used when code status has not been discussed with the patient, or code status is otherwise unknown/unconfirmed To update the patient's code status, place a code status order. Do not modify or discontinue any currently active code status orders. Care Teams Plastic Jig And Fixture Builder Relationship Specialty Start Date End Date Denise Gerard MD [address] [place] [address] PCP - General Internal Medicine 05/31/24
[2024-07-27 09:51] LABS: MANUAL DIFF FLAG NO
[2024-07-27 09:54] LABS: Basophils Absolute Auto 0.1 X10*3/uL (0.0-0.2); Basophils Percent Auto 1.1 % (0-2); Eosinophils Absolute Auto 0.4 X10*3/uL (0.0-0.4); Eosinophils Percent Auto 6.7 % (0-4); Hematocrit 38.4 % (37.0-47.0); Hemoglobin 11.7 g/dl (12.0-16.0); Imm Gran Abs Auto 0.01 X10*3/uL (0.00-0.03); Imm Gran Pct Auto 0.2 % (0.0-0.4); Lymphocytes Absolute Auto 2.1 X10*3/uL (1.2-4.9); Lymphocytes Percent Auto 39.6 % (20-40); Mean Corpuscular HGB Conc 30.5 g/dl (31.0-35.0); Mean Corpuscular Hemoglobin 18.8 pg (27.0-33.0); Mean Corpuscular Volume 61.8 fL (80.0-98.0); Monocytes Absolute Auto 0.5 X10*3/uL (0.1-1.2); Monocytes Percent Auto 9.7 % (2-11); Neutrophils Absolute Auto 2.2 x10*3/uL (2.0-8.3); Neutrophils Percent Auto 42.7 % (45-73); Platelet Count 440 X10*3/uL (160-400); Red Blood Count 6.21 X10*6/uL (4.20-5.50); Red Cell Distribution Width 18.1 % (11.0-16.0); White Blood Count 5.3 X10*3/uL (4.8-10.8)
[2024-07-27 10:02] LABS: Estimated Average Glucose 146 mg/dL; Hemoglobin A1c % 6.7 % (<6.0)
[2024-07-27 10:27] LABS: Creatinine Urine 55.05 mg/dL
[2024-07-27 10:56] LABS: Alanine Aminotransferase 24 U/L (0-31); Albumin Level 4.3 g/dL (3.5-5.0); Anion Gap 12 (12-20); Aspartate Amino Transferase 20 U/L (5-31); Bilirubin Total 1.1 mg/dL (0.0-1.0); Blood Urea Nitrogen 16 mg/dL (9-16); Calcium 9.5 mg/dL (8.4-10.2); Carbon Dioxide 29 mmol/L (22-29); Chloride 103 mmol/L (96-108); Cholesterol 166 mg/dL (<200); Estimated Glomerular Filt Rate > 60; Glucose Random 150 mg/dL (60-115); HDL Cholesterol 77 mg/dL (>40); LDL Cholesterol Calculated 80 mg/dL (<100); Potassium 4.3 mmol/L (3.3-5.1); Sodium 140 mmol/L (135-145); Total Protein 7.5 g/dL (6.5-8.0); Triglycerides 49 mg/dL (<150)
[2024-07-27 11:18] LABS: Alkaline Phosphatase 68 U/L (39-117)
== END 2024-07-27 08:04 | disposition home or self-care (01) ==
LOC: HO.HMGCLDS 08:03
PROVIDERS: PCP Internal Medicine; Visit Provider Internal Medicine
DX: E11.9 Type 2 diabetes mellitus without complications (principal); I10 Essential (primary) hypertension; E78.5 Hyperlipidemia, unspecified
CPT/HCPCS: 36415; 80053; 80061; 82043; 82570; 83036; 85025

== ENCOUNTER 2024-08-02 15:00 | Outpatient (AMB) | payer MEDICARE, SELFPAY ==
--- NOTE | 2024-08-02 15:11 | MHC.PC.OV ---
Vital Signs 08/02/24 15:14 Height 5 ft 3.5 in Weight 118 lb BMI 20.6 BP 120/72 Blood Pressure Location Lt brachial Position Sitting Respiration 12 Pulse 95 Pulse Source Pulse Oximeter Pulse Oximetry (%) 94 Oxygen Delivery Method Room Air Intake Visit Reasons: DM follow up Intake Note: Diabetes follow up. Needs refill on Pravastatin. Supervisor Net Making Required: No Allergies No Known Allergies Allergy (Verified 08/02/24 15:12) Medication List - Last Reconciled 08/08/24 by Denise Gerard MD aspirin 81 mg PO DAILY empagliflozin (Jardiance) 10 mg PO DAILY loratadine 10 mg PO DAILY losartan 12.5 mg (1/2 x 25 mg) PO DAILY metformin 1,000 mg PO BID multivitamin 1 tab PO DAILY pravastatin 40 mg PO DAILY semaglutide 0.5 mg (0.736 mL) subcut QWEEK Tobacco use date assessed: 08/02/24 Fall risk assessment: 1 Fall in past year (once, passed out. Possibly from dehydration.) Last assessed Fall Risk: 08/02/24 Dental Screening Dental Screen Date: 04/26/24 HPI HPI Comments History of Present Illness Details 69 year old female with a past medical history of type 2 diabetes, hypertension, hyperlipidemia, depression, anemia presenting for follow up Type 2 diabetes: on ozempic 0.5mg, jardiance, metformin. Hemoglobin A1C 6.7%. Goes to [facility] with exam. No neuropathy. No issues with yeast infection. Takes glucose reading once a day fasting-?one touch/freestyle. On ARB, statin. CV: On losartan 25mg daily, pravastatin 40mg daily daily ASA. BP 120/72. Denies chest pain, shortness of breath. Sometimes dizzy when dehydrated or stands. Slight anemia with labs. Smear? hemoglobinopathy. Says sister has. Colonoscopy about 7 years ago. 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 ROS CONSTITUTIONAL: Denies weight loss, fever and chills. HEENT: Denies changes in vision and hearing. RESPIRATORY: Denies SOB and cough. CV: Denies palpitations and CP GI: Denies abdominal pain, nausea, vomiting and diarrhea. : Denies dysuria and urinary frequency. MSK: Denies new myalgia and joint pain. SKIN: Denies rash and pruritus. NEUROLOGICAL: Denies headache PSYCHIATRIC: Denies recent changes in mood. PHYSICAL EXAM: GENERAL: Alert and oriented x 3. NAD EYES: EOMI. Anicteric. HENT: Moist mucous membranes. No scleral icterus. No cervical lymphadenopathy. LUNGS: Clear to auscultation bilaterally. CARDIOVASCULAR: Regular rate and rhythm. No murmur. No JVD. ABDOMEN: Soft, non-tender +bs EXTREMITIES: No edema. Non-tender. SKIN: No rashes or lesions. Warm. NEUROLOGIC: No focal neurological deficits. CN II-XII grossly intact PSYCHIATRIC: Cooperative. 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 1. Little interest or pleasure in doing things: not at all 2. Feeling down, depressed, or hopeless: not at all 3. Trouble falling or staying asleep, or sleeping too much: not at all 4. Feeling tired or having little energy: not at all 5. Poor appetite or overeating: not at all 6. Feeling bad about yourself - or that you are a failure or have let yourself or your family down: not at all 7. Trouble concentrating on things, such as reading the newspaper or watching television: not at all 8. Moving or speaking so slowly that other people could have noticed. Or the opposite - being so fidgety or restless that you have been moving around a lot more than usual: not at all 9. Thoughts that you would be better off or of hurting yourself in some way: not at all Total score: 0 Depression Screening Interpretation: Negative Depression Screening Done: Yes 44790 - PHQ-9 Billing: Yes Source: Developed by Drs. Sid Figueroa, Merced Horton, Leon Harrington and colleagues, with an educational arcenio from [employer]. Thrive Questionnaire Date Thrive assessed: 07/25/24 I am a: Patient What is your living situation today?: I have a steady place to live Within the past 12 months, did the food you bought not last and you didn't have the money to get more?: Never true Within the past 12 months, did you worry whether your food would run out before you got money to buy more?: Never true Do you have trouble paying for medicines?: No Do you have trouble getting transportation to medical appointments?: No Do you have trouble paying your heating and electricity bill?: No Do you have trouble taking care of your child, family member or friend?: No Do you have trouble with day-to-day activities such as bathing, preparing meals, shopping, managing finances, etc.?: No Are you currently unemployed and looking for a job?: No Are you interested in more education?: No Please select the resources that you would like help with: None Currently or been in a relationship where the following occur: No concerns reported THRIVE Score: 0 TERRENCE-7 AMB Questionnaire TERRENCE-7 Date TERRENCE - 7 assessed: 04/26/24 Source: Developed by Drs. Sid Figueroa, Merced Horton, Leon Harrington and colleagues, with an educational arcenio from [employer]. Physical exam (Primary Care) Vital Signs: Last Vital Signs Pulse 95 08/02/24 15:14 Resp 12 08/02/24 15:14 BP 120/72 08/02/24 15:14 Pulse Ox 94 08/02/24 15:14 Oxygen Delivery Method Room Air 08/02/24 15:14 BMI result Body Mass Index 20.6 Tobacco/Smoking Status: Tobacco use Status Tobacco use date assessed 08/02/24 08/02/24 15:16 Patient Tobacco Use Status Former Tobacco user 08/02/24 15:16 e-Cigarette/Vaping Use Never Used 08/02/24 15:12 PHQ-9: PHQ-9 Score PHQ-9: Total score 0 08/08/24 03:35 Depression Screening Interpretation: Negative Thrive Assessment: Date of Thrive Assessment Date Thrive assessed 07/25/24 08/02/24 15:12 Currently or been in a relationship where the following occur: No concerns reported Coding Level of Care Code Est Pt Level 4 (31822) Complex EM visit Add On G2211 Diagnoses Type 2 diabetes mellitus without complication, without long-term current use of insulin E11.9 Diabetes mellitus complication status: without complication Diabetes mellitus skilled nursing insulin use: without extermination supervisor use Anemia, unspecified type D64.9 Anemia type: unspecified type Additional Codes PHQ-9 - 77348 - PHQ-9 Billing: Yes ([id number]) Assessment & Plan Assessment & Plan (1) Type 2 diabetes mellitus: Code(s): E11.9 - Type 2 diabetes mellitus without complications Category: Medical Qualifiers: Diabetes mellitus complication status: without complication Diabetes mellitus skilled nursing insulin use: without extermination supervisor use Qualified Code(s): E11.9 - Type 2 diabetes mellitus without complications Plan: Controlled on current medication Goal weight. BP controlled. On statin, ARB Annua eye exams (2) Anemia: Code(s): D64.9 - Anemia, unspecified Category: Medical Qualifiers: Anemia type: unspecified type Qualified Code(s): D64.9 - Anemia, unspecified Plan: iron studies, hemoglobin electrophoresis ordered Orders: Orders IRON PROFILE 08/02/24 D64.9 - Anemia, unspecified, E11.9 - Type 2 diabetes mellitus without complications, E78.2 - Mixed hyperlipidemia, I10 - Essential (primary) hypertension Hemoglobin A1c 08/02/24 D64.9 - Anemia, unspecified, E11.9 - Type 2 diabetes mellitus without complications, E78.2 - Mixed hyperlipidemia, I10 - Essential (primary) hypertension Comprehensive Met. Panel 08/02/24 D64.9 - Anemia, unspecified, E11.9 - Type 2 diabetes mellitus without complications, E78.2 - Mixed hyperlipidemia, I10 - Essential (primary) hypertension Hemoglobin Electrophoresis 08/02/24 D64.9 - Anemia, unspecified, E11.9 - Type 2 diabetes mellitus without complications, E78.2 - Mixed hyperlipidemia, I10 - Essential (primary) hypertension Medications: New pravastatin 40 mg PO DAILY 90 tabs 3RF Changed From losartan 25 mg PO DAILY 90 tabs 3RF To losartan 12.5 mg (1/2 x 25 mg) PO DAILY 45 tabs 3RF
[2024-08-02 15:14] VITALS: BP 120/72; PULSE 95; RESP 12; O2SAT 94; BMI 20.6
--- OUTSIDE RECORDS SUMMARY | 2024-08-02 18:59 | XMS_ITS | Clinical Summary ---
Author Organization [facility] Address [address] [place] [address] Phone Care Team Providers Care Residence Director Name Role Phone Simran Plaza MD Primary Care Provider [phone] Allergies No known active allergies Medications Aspirin [...] patient[place] [id number] [facility] MEDICARE [facility] MEDICARE Care Teams Residence Director Relationship Specialty Start Date End Date Simran Plaza MD [address] [place] [address] PCP - General Internal Medicine 02/25/21
--- OUTSIDE RECORDS SUMMARY | 2024-08-02 18:59 | XMS_ITS | Data Portability ---
Author Organization [facility] Address [address] [place] [phone] Care Team Providers Care Plant Utilities Engineer Name Role Phone DARINEL CHOWDHURY Primary Care Provider Assessment No assessment recorded. Plan of Treatment [...] By Organization Details Last Modified Time 11/26/2022 [id number] Skin Cyst: Care Instructions Not available 11/26/2022 09:15:35 Reason for Referral Hose Tubing Backer Referral for Ep idermoid cyst of skin Right Labia Cyst - Appears Benign. Follow up if does not open on it's own. Referring Physician: Alisson Corbett, Urgent Care, Encounter Date: 11/26/2022 Problems Name Problem SNOMED Code Status Onset Date Resolution Date Notes Provider Name and Address Organization Details Recorded Time Diabetes mellitus 72228300 Active 2022 MANNY Aguayo [facility] 3 08:36:43 Hypertensive disorder 36525879 Active 2022 MANNY Aguayo [facility] [...] Updated DateTime 3 161.29 cm 24.2 kg/m2 67179.3 4 g 0 18 /min 101 /min 96 % 96 % 98.4 [degF] 144 mm[Hg] 90 mm[Hg] Jordana Carbajal PA [facility] 3 08:39:37 Date Recorded Systolic blood pressure Diastolic blood pressure Provider Name and Address Organization Details Last Updated DateTime 11/26/2022 130 mm[Hg] 86 mm[Hg] MANNY PAVON [facility] [place], [address], [place] - [facility] 11/26/2022 09:15:56 Social History Question Answer Notes LastModified by Organizat ion Details LastModified Time Tobacco Smoking Status Former Smoker Jordana coffey PA [employer] [facility] 11/26/2022 08:37:59 What Is Your Level [...] SNOMED-CT Code Diagnosis ICD10 Code Diagnosis Note [id number] [address] [address] 11/16/2021 08:17:34 11/16/2021 09:20:57 [id number] MANNY PAVON [address] [address] [address] 11/26/2022 08:10:16 11/26/2022 09:17:23 Epidermoid cyst of skin 753339843 L72.0 In the right labia majora. This [...] Inability to urinate. Thank you for using [facility] [employer]! Health Concerns Section Related Observation LastModified by Organization Yoni melendez LastModified Time None Recorded Concern Status LastModified by Organization Details LastModified Time None Recorded Advance Directives Directive None Recorded Payers Encounter Date Sequence Insurance Name Policy Number Policy Zamarripa Covered Member ID Zamarripa Member ID Guarantor Name 11/16/2021 1 [facility] (MEDICARE REPLACEMENT/A DVANTAGE - HMO) [id number] [facility] [id number] Catherine Smcarrie 11/16/2021 2 MEDICARE B-[place]: [facility] [employer] Catherine Ponce [id number] Catherine carrie 11/26/2022 1 [facility] (MEDICARE REPLACEMENT/A DVANTAGE - HMO) [id number] Catherine Sumner carrie [id number] Catherine carrie 11/26/2022 2 MEDIC[place] B-[place]: [facility] [employer] Catherine Sumner carrie [id number] Catherine Ponce Notes Date Note Type Note [...] or bleeding. No urinary symptoms. MANNY PAVON [facility] [place], [address], [place] - [facility] 11/26/2022 09:18:25 OBGyn Episode No OBEpisode recorded.
--- OUTSIDE RECORDS SUMMARY | 2024-08-02 18:59 | XMS_ITS | Clinical Summary ---
Author Organization [address] [facility] Address [address] [place] [address] Phone Care Team Providers Care Manager Php Name Role Phone Denise Gerard MD Primary Care Provider [phone] Allergies No known active allergies Medications pravastatin [...] complication, without long-term current use of insulin ([facility]) Inject 0.5 mg under the skin every 7 (seven) days. 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 11/20/2023 Family history of breast cancer in first degree relative 08/07/2023 Hypertension 04/01/2021 Type 2 diabetes mellitus 03/27/2020 Overview (05/31/2024): Mild nonproliferative diabetic retinopathy noted on bilateral eye examination March 2020 Mild nonproliferative diabetic retinopathy noted on bilateral eye examination March 2020 Dyslipidemia 08/13/2018 Encounters Date Type Department Care Team Description 08/02/2024 9:45 AM EST Office Visit Orthopedic Surgery - [address] [phone] Jane Brady MD Surgery follow-up (Primary Dx); Dupuytren's contracture 06/20/2024 8:45 AM EST Office Visit Orthopedic Surgery [address] [phone] Antonieta Zaman PA Surgery follow-up (Primary Dx) 06/08/2024 1:18 PM EST Anesthesia Event [facility] Main OR [address] [place] [phone] Surya Layton MD Abrokwah, Foster Myles G, SEUN 06/08/2024 12:15 PM EST - 06/08/2024 1:45 PM EST Surgery [facility] OR [address] [place] [phone] Jane Brady MD RELEASE PALMAR FASCIA LEFT [[id number] (CPT??)] 06/08/2024 10:22 AM EST - 06/08/2024 4:55 PM EST Hospital Encounter [facility] OR [address] [place] [phone] Jane Brady MD Palmar fascial fibromatosis (dupuytren); Palmar fascial fibromatosis (dupuytren) Discharge Disposition: Home or Self Care 05/31/2024 9:30 AM EST Consult Orthopedic Surgery - [place] [address] [phone] Jane Brady MD Palmar fascial fibromatosis (dupuytren) (Primary Dx) from Last 3 Months Immunizations Name Administration Dates Next Due Influenza trivalent, with pr eservative (Fluzone; Afluria) 6mo and older 03/15/2018 Influenza, Unspecified 04/09/2023,03/06/2022, YOUnite SARS-CoV-2 COVID-19, mRNA, LNP-S, preservative free 03/26/2022,09/30/2021,03/13/2021 [...] SURGICAL HISTORY PROCEDURE: DENIES PREVIOUS SURGERY COLONOSCOPY FASCIOTOMY 06/08/2024 Left ring finger Medical History Medical History Date Comments Diabetes [...] EST Inhaled Oxygen Concentration - - Weight 49.9 kg (110 lb) 08/02/2024 9:48 AM EST Height 162.6 cm (5' 4 ) 08/02/2024 9:48 AM EST Body Mass Index 18.88 08/02/2024 9:48 AM EST Plan of Treatment Health Maintenance Due Date [...] Blood Sugar Control Test (HGBA1C) 01/25/2024 07/27/2023 Diabetes: Annual Retina Eye Exam 04/08/2024 04/08/2023 Breast Cancer Screening 01/16/2025 01/17/20, 01/13/2023, 01/08/2022, Additional history exists Falls Risk [...] Completed 2024, , 03/26/2022, Additional history exists Influenza Vaccine Completed 04/15/2024, , 05/01/2022, Additional history exists HIB Vaccines Aged Out [...] 1:49 PM EST Palmar fascial fibromatosis (dupuytren) AK FASCIECTOMY PARTIAL PALMAR W/RELEASE SINGLE DIGIT INCL [...] WITH DUPUYTREN CONTRACTURE 06/09/2024 2:[address] [facility] Gross Description A. Hand, Left, dupuytren's fascia left hand: Labeled Dupuytren's hand L . Received in formalin is a 1.8 x 1.8 x 0.3 cm aggregate of irregular pink-white dense fibrous tissue. The larger fragments are sectioned. The cut surfaces are comprised of dense gerardo-white fibrous tissue. The specimen is entirely submitted in one cassette, multiple pieces. MATHIEU 06/09/2024 2:16 PM EST [facility] Disclaimer Unless otherwise specified, all tissue is 10% NB formalin fixed and paraffin embedded. 06/09/2024 2:16 PM EST [facility] Tissue Structure of left hand / Unknown 06/08/2024 1:49 PM EST 06/08/2024 3:58 PM EST us Jane Brady MD LAB PATHOLOGY ORDERABLES Aline mercedes Result [facility] [address] [place] [address], * TH AN NERVE BLOCK AXILLARY (CHARGE), [...] - 100 mg/dL 06/08/2024 10:[address] [facility] Blood Capillary blood specimen / Unknown 06/08/2024 10:40 AM EST 06/08/2024 10:44 AM EST Jane Brady MD LAB POINT OF CARE TE ST DOCKED DEVICE UNSOLICITED RESULTS Final Result [facility] [address] [place] [address], [place] [phone] * DXA BONE DENSITY STUDY 1+ SITS AXIAL SKEL (09/14/2023 9:58 AM EDT) Anatomical Region Laterality Modality Bone Densitometr y 07/29/2023 8:17 AM EST Narrative 09/14/2023 7:16 PM EDT STUDY: ??DUAL ENERGY X-RAY ABSORPTIOMETRY / DXA REASON FOR EXAM: ?? Female, 68 years old ??osteoporosis TECHNIQUE: ?? Bone Mineral Density (BMD) measurements of the lumbar spine and left hip were obtained using [employer] W ([id number]/N [id number]). ?? COMPARISON: March 27, 2021 ?? FINDINGS: [...] lumbar spineand left hip were obtained using [employer] W (S/N [id number]). COMPARISON: March 27, 2021 FINDINGS: L1-L4 BMD: [...] -2.5 SD Osteoporosis us Tosin Ceron MD IM DXA PROCEDURES Final Result * DIAGNOSTIC MAMMOGRAPHY [...] multiple prior studies as far back as 2018. IMPRESSION: Impression: Left breast: Negative, no specific mammographic evidence of malignancy. ??Normal interval follow-up is recommended in 12 months. Findings and recommendations were communicated to the patient via surgical technologist. BI-RADS: Category 1: Negative Procedure Note [...] Unilateral left digital diagnostic mammography is obtained andre in conjunction with computer aided detection. Tomosynthesis [...] Most Recently Relevant to Health Maintenance Insurance [facility] MEDICARE Advance Directives * Full Code - [...] currently active code status orders. Care Teams Manager Php Relationship Specialty Start Date End Date Denise Gerard MD [address] [place] [phone] PCP - General Internal Medicine 05/31/24
--- OUTSIDE RECORDS SUMMARY | 2024-08-02 18:59 | XMS_ITS | Encounter Summary ---
Author Organization [facility] Address [address] [place] [address] Care Team Providers Care Grid Molder Name Role Phone Denise Gerard MD Primary Care Provider [phone] Reason for Visit * Reason Comments Pre-op Visit Surgery follow up fo r fasciotomy on 06/08/24 Post-op Surgery follow up fo r fasciotomy on 06/08/24 Encounter Details Date Type Department Care Team (Late st Contact Info) Description 08/02/2024 9:45 AM EST Office Visit Orthopedic Surgery - [place] [address] [phone] Jane Brady MD [address] [facility] [address] [place] [address] Surgery follow-up (Primary Dx); Dupuytren's contracture Social History Tobacco Use Types Packs/Day Years [...] Orientation Straight 06/08/2024 10 :21 AM EST documented as of this encounter Last Filed Vital Signs Vital Sign Reading Time Taken Comments Blood Pressure - - Pulse - - Temperature - - Respiratory Rate - - Oxygen Saturation - - Inhaled Oxygen Concentration - - Weight 49.9 kg (110 lb) 08/02/2024 9:48 AM EST Height 162.6 cm (5' 4 ) 08/02/2024 9:48 AM EST Body Mass Index 18.88 08/02/2024 9:48 AM EST documented in this encounter Progress Notes * Jane Brady MD - 08/02/2024 9:45 AM EST Post-op Note (within 90 days of surgical procedure) Procedure: Palm and ring finger fasciectomy for Dupuytren's left hand Date of surgery: 06/08/2024 Subjective: Patient reports feeling pretty good. She was discharged from therapy. She is pleased with her progress. She is using a splint at night. Objective: On exam this Gar on her palm finger was a little firm as to be expected at this point but she has good extension. When she holds her hand it is flat on the table. There is perhaps a 10 degree residual at the PIP joint. The MCP joint goes to neutral although does not significantly hyperextend. When she makes a fist and hook grasp the left ring and her PIP does not 96 degrees and the DIP goes to 65. She can actively straighten out. Had again a little firmness on the palm and finger where the scar is no skin breakdown. Sensation is intact Assessment: 1. Surgery follow-up 2. Dupuytren's contracture Plan: Patient was advised to use the small splint she has just at night and for 3 additional months. She is well versed in doing the exercises and also scar massage. I think things will continue to improve gradually over time. I am happy to see her back but I do not think she needs to have a formalfollow-up. If she has any Questions or concerns she will let us know. Follow-up: As needed Jane Brady MD documented in this encounter Plan of Treatment Not on file documented as of this encounter Visit Diagnoses Diagnosis Surgery follow-up- Primary Dupuytren's contracture Contracture of palmar fascia documented in this encounter Care Teams Grid Molder Relationship Specialty Start Date End Date Denise Gerard MD [address] [place] [address] PCP - General Internal Medicine 05/31/24 documented as of this encounter
== END 2024-08-02 15:36 | disposition home or self-care (01) ==
PROVIDERS: PCP Internal Medicine; Visit Provider Internal Medicine
DX: E11.9 Type 2 diabetes mellitus without complications (principal); D64.9 Anemia, unspecified

== ENCOUNTER → 2024-08-02 15:00 | Outpatient (BNVA) | payer MEDICARE, SELFPAY | PROVIDERS: PCP Internal Medicine; Visit Provider Internal Medicine | DX: E11.9 Type 2 diabetes mellitus without complications (principal); I10 Essential (primary) hypertension; D64.9 Anemia, unspecified; Z79.82 Long term (current) use of aspirin; Z79.84 Long term (current) use of oral hypoglycemic drugs; Z79.899 Other long term (current) drug therapy | CPT/HCPCS: 96127; 99212 ==

== ENCOUNTER 2024-11-09 07:56 | Outpatient (REF) | payer MEDICARE, SELFPAY ==
--- OUTSIDE RECORDS SUMMARY | 2024-11-09 08:00 | XMS_ITS | Clinical Summary ---
Author Organization [facility] Address [address] [place] [address] Phone Care Team Providers Care Exhibition Designer Name Role Phone Simran Plaza MD Primary Care Provider [phone] Allergies No known active allergies Medications Aspirin [...] eye examination March 2020 Dyslipidemia 08/13/2018 Immunizations Immunization Administration Dates Next Due Influenza TIV (IM) [...] Hemoglobin A1C 04/16/202101/14/2 021, 09/10/2020 Pneumococcal Vaccine: 50+ Years (2 of 2 - PCV) 05/09/2021 05/09/2020, 07/08/2011 Influenza Vaccine (Season Ended) 2025 03/15/2018 Pneumococcal Vaccine: Peds ( 0 to 5 Years) and At-Risk Patients (6 to 49 Years) Discontinued 05/09/2020, 07/08/2011 Hepatitis B Vaccine Aged Out No longe r eligible based on patient's age to complete this topic Insurance [facility] Medicare [facility] Medicare Care Teams Exhibition Designer Relationship Specialty Start Date End Date Simran Plaza MD [address] [place] [address] PCP - General Internal Medicine 02/25/21
[2024-11-09 10:52] LABS: Estimated Average Glucose 148 mg/dL; Hemoglobin A1c % 6.8 % (<6.0)
[2024-11-09 10:58] LABS: Alanine Aminotransferase 17 U/L (0-31); Albumin Level 4.7 g/dL (3.5-5.0); Alkaline Phosphatase 60 U/L (39-117); Anion Gap 10 (12-20); Aspartate Amino Transferase 21 U/L (5-31); Bilirubin Total 1.3 mg/dL (0.0-1.0); Blood Urea Nitrogen 13 mg/dL (9-16); Calcium 9.3 mg/dL (8.4-10.2); Carbon Dioxide 29 mmol/L (22-29); Chloride 101 mmol/L (96-108); Estimated Glomerular Filt Rate > 60; Glucose Random 139 mg/dL (60-115); Iron 93 mcg/dL (30-160); Percent Iron Saturation 27 % (15-50); Potassium 3.7 mmol/L (3.3-5.1); Sodium 136 mmol/L (135-145); Total Iron Binding Capacity 349 mcg/dL (228-428); Total Protein 7.2 g/dL (6.5-8.0); Unsaturated Iron Binding 256 ug/dL
[2024-11-10 14:08] LABS: Hematocrit 39.9 % (35.0-45.0); MCH 19.2 pg (27.0-33.0); MCV 63.8 fL (80.0-100.0); RBC 6.25 Million/uL (3.80-5.10); RDW 18.1 % (11.0-15.0)
== END 2024-11-09 07:57 | disposition home or self-care (01) ==
LOC: HO.HMGCLDS 07:56
PROVIDERS: PCP Internal Medicine; Visit Provider Internal Medicine
DX: E11.9 Type 2 diabetes mellitus without complications (principal); I10 Essential (primary) hypertension; E78.2 Mixed hyperlipidemia; D64.9 Anemia, unspecified
CPT/HCPCS: 36415; 80053; 83020; 83036; 83540; 85014; 85018; 85041

== ENCOUNTER 2024-11-14 10:36 | Outpatient (AMB) | payer MEDICARE, SELFPAY ==
--- NOTE | 2024-11-14 10:43 | MHC.PC.OV ---
Vital Signs 11/14/24 10:44 Height 5 ft 3.5 in Weight 116 lb 8 oz BMI 20.3 BP 110/66 Blood Pressure Location Rt brachial Position Sitting Respiration 12 Pulse 102 H Pulse Source Pulse Oximeter Temp 98.3 F Temp Source Oral Pulse Oximetry (%) 98 Oxygen Delivery Method Room Air Intake Visit Reasons: Annual PE - see comments Intake Note: Physical Prosthetics Assistant Required: No Allergies No Known Allergies Allergy (Verified 11/14/24 10:50) Tobacco use date assessed: 11/14/24 Fall risk assessment: No Falls in past year Last assessed Fall Risk: 11/14/24 Dental Screening Dental Screen Date: 11/14/24 Did you have a dental visit in the last 12 months?: Yes Did you have a dental problem in the last 6 months where you did not have access to dental care?: No Was dental information given to patient?: Patient has dentist HPI HPI Comments History of Present Illness Details 69 year old female with a past medical history of type 2 diabetes, hypertension, hyperlipidemia, depression, anemia presenting for physical exam Type 2 diabetes: on ozempic 0.5mg, jardiance, metformin 1000mg twice daily. Hemoglobin A1C <7%. Goes to [facility] with exam. No neuropathy. No issues with yeast infection. Takes glucose reading once a day fasting. On ARB, statin. CV: On losartan 25mg daily, pravastatin 40mg daily daily ASA. BP well controlled. Denies chest pain, shortness of breath. Sometimes dizzy when dehydrated or stands. Slight anemia with labs-electropheresis c/w beta thalessemia trait Colonoscopy 01/07/17-10 year Mammogram: 01/25/2024-good No longer seeing rail specialist-stopped pap 65. ROS CONSTITUTIONAL: Denies weight loss, fever and chills. HEENT: Denies changes in vision and hearing. RESPIRATORY: Denies SOB and cough. CV: Denies palpitations and CP GI: Denies abdominal pain, nausea, vomiting and diarrhea. : Denies dysuria and urinary frequency. MSK: Denies new myalgia and joint pain. SKIN: Denies rash and pruritus. NEUROLOGICAL: Denies headache PSYCHIATRIC: Denies recent changes in mood. PHYSICAL EXAM: GENERAL: Alert and oriented x 3. NAD EYES: EOMI. Anicteric. HENT: Moist mucous membranes. No scleral icterus. No cervical lymphadenopathy. LUNGS: Clear to auscultation bilaterally. CARDIOVASCULAR: Regular rate and rhythm. No murmur. No JVD. ABDOMEN: Soft, non-tender +bs EXTREMITIES: No edema. Non-tender. SKIN: No rashes or lesions. Warm. NEUROLOGIC: No focal neurological deficits. CN II-XII grossly intact PSYCHIATRIC: Cooperative. 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 1. Little interest or pleasure in doing things: not at all 2. Feeling down, depressed, or hopeless: not at all 3. Trouble falling or staying asleep, or sleeping too much: more than half the days 4. Feeling tired or having little energy: several days 5. Poor appetite or overeating: not at all 6. Feeling bad about yourself - or that you are a failure or have let yourself or your family down: not at all 7. Trouble concentrating on things, such as reading the newspaper or watching television: not at all 8. Moving or speaking so slowly that other people could have noticed. Or the opposite - being so fidgety or restless that you have been moving around a lot more than usual: not at all 9. Thoughts that you would be better off or of hurting yourself in some way: not at all Total score: 3 Depression Screening Interpretation: Negative Depression Screening Done: Yes 89967 - PHQ-9 Billing: Yes Source: Developed by Drs. Sid Figueroa, Merced Horton, Leon Harrington and colleagues, with an educational arcenio from [employer]. Thrive Questionnaire Date Thrive assessed: 11/14/24 I am a: Patient What is your living situation today?: I have a steady place to live Within the past 12 months, did the food you bought not last and you didn't have the money to get more?: Never true Within the past 12 months, did you worry whether your food would run out before you got money to buy more?: Never true Do you have trouble paying for medicines?: No Do you have trouble getting transportation to medical appointments?: No Do you have trouble paying your heating and electricity bill?: No Do you have trouble taking care of your child, family member or friend?: No Do you have trouble with day-to-day activities such as bathing, preparing meals, shopping, managing finances, etc.?: No Are you currently unemployed and looking for a job?: No Are you interested in more education?: No Please select the resources that you would like help with: None Currently or been in a relationship where the following occur: No concerns reported THRIVE Score: 0 AUDIT C Alcohol Use Questionnaire (AUDIT-C) 1. How often do you have a drink containing alcohol?: Never 3. How often do you have six or more drinks on one occasion?: Never Total Score: 0 TERRENCE-7 AMB Questionnaire TERRENCE-7 Date TERRENCE - 7 assessed: 11/14/24 Feeling nervous, anxious, or on edge: 0 = Not at all Not being able to stop or control worryin = Not at all Worrying too much about different things: 0 = Not at all Trouble relaxin = Not at all Being so restless that it is hard to sit still: 0 = Not at all Becoming easily annoyed or irritable: 0 = Not at all Feeling afraid as if something awful might happen: 0 = Not at all Total TERRENCE-7 score (0-4 normal; 5-9 mild; 10-14 moderate; 15-21 severe): 0 Source: Developed by Merced Valera, Leon Harrington and colleagues, with an educational arcenio from [employer]. TERRENCE-7 Assessment Billing TERRENCE-7 Assessment Tool: TERRENCE-7 Assessment 47193 Physical exam (Primary Care) Vital Signs: Last Vital Signs Temp 98.3 F 11/14/24 10:44 Pulse 102 H 11/14/24 10:44 Resp 12 11/14/24 10:44 BP 110/66 11/14/24 10:44 Pulse Ox 98 11/14/24 10:44 Oxygen Delivery Method Room Air 11/14/24 10:44 BMI result Body Mass Index 20.3 Tobacco/Smoking Status: Tobacco use Status Tobacco use date assessed 11/14/24 11/14/24 10:51 Patient Tobacco Use Status Former Tobacco user 11/14/24 10:51 e-Cigarette/Vaping Use Never Used 11/14/24 10:51 PHQ-9: PHQ-9 Score PHQ-9: Total score 3 11/14/24 10:51 Depression Screening Interpretation: Negative Thrive Assessment: Date of Thrive Assessment Date Thrive assessed 11/14/24 11/14/24 10:51 Currently or been in a relationship where the following occur: No concerns reported Coding Level of Care Code Est Pt Level 4 (48170) Est Pt Prev Care >65y(64124) Diagnoses Physical exam Z00.00 Beta thalassemia trait D56.3 Primary hypertension I10 Hypertension type: primary hypertension Additional Codes TERRENCE-7 Assessment Billing - TERRENCE-7 Assessment Tool: TERRENCE-7 Assessment 49488 ([id number]) PHQ-9 - 77317 - PHQ-9 Billing: Yes ([id number]) Assessment & Plan Assessment & Plan (1) Physical exam: Code(s): Z00.00 - Encounter for general adult medical examination without abnormal findings Category: Medical (2) Beta thalassemia trait: Code(s): D56.3 - Thalassemia minor Category: Medical (3) Hypertension: Code(s): I10 - Essential (primary) hypertension Category: Medical Qualifiers: Hypertension type: primary hypertension Qualified Code(s): I10 - Essential (primary) hypertension Plan CPE Interval history reviewed Preventive measures for age discussed DM is well controlled BP is well controlled Labs ordered Orders: Orders MM screening mammo BI 11/14/24 Z12.31 - Encounter for screening mammogram for malignant neoplasm of breast Complete Blood Count Auto Diff 6 Months D56.3 - Thalassemia minor, E11.9 - Type 2 diabetes mellitus without complications, E78.2 - Mixed hyperlipidemia, I10 - Essential (primary) hypertension Lipid Panel 6 Months D56.3 - Thalassemia minor, E11.9 - Type 2 diabetes mellitus without complications, E78.2 - Mixed hyperlipidemia, I10 - Essential (primary) hypertension Hemoglobin A1c 6 Months D56.3 - Thalassemia minor, E11.9 - Type 2 diabetes mellitus without complications, E78.2 - Mixed hyperlipidemia, I10 - Essential (primary) hypertension Comprehensive Met. Panel 6 Months D56.3 - Thalassemia minor, E11.9 - Type 2 diabetes mellitus without complications, E78.2 - Mixed hyperlipidemia, I10 - Essential (primary) hypertension Microalbumin, Random (w Creat) 6 Months D56.3 - Thalassemia minor, E11.9 - Type 2 diabetes mellitus without complications, E78.2 - Mixed hyperlipidemia, I10 - Essential (primary) hypertension Referrals Dermatology Referral Z12.83 - Encounter for screening for malignant neoplasm of skin
[2024-11-14 10:44] VITALS: BP 110/66; PULSE 102; RESP 12; TEMP 36.8; O2SAT 98; BMI 20.3
--- OUTSIDE RECORDS SUMMARY | 2024-11-14 11:54 | XMS_ITS | Clinical Summary ---
Author Organization [facility] Address [address] [place] [address] Phone Care Team Providers Care Green House Manager Name Role Phone Simran Plaza MD Primary Care Provider [phone] Allergies No known active allergies Medications Aspirin [...] patient's age to complete this topic Insurance [facility] Medicare [facility] Medicare Care Teams Green House Manager Relationship Specialty Start Date End Date Simran Plaza MD [address] [place] [address] PCP - General Internal Medicine 02/25/21
== END 2024-11-14 11:17 | disposition home or self-care (01) ==
LOC: HO.HMCFM 10:37
PROVIDERS: PCP Internal Medicine; Visit Provider Internal Medicine
DX: Z00.00 Encounter for general adult medical examination without abnormal findings (principal); D56.3 Thalassemia minor; I10 Essential (primary) hypertension

== ENCOUNTER → 2024-11-14 10:36 | Outpatient (BNVA) | payer MEDICARE, SELFPAY | PROVIDERS: PCP Internal Medicine; Visit Provider Internal Medicine | DX: Z00.00 Encounter for general adult medical examination without abnormal findings (principal); D56.3 Thalassemia minor; I10 Essential (primary) hypertension; E11.9 Type 2 diabetes mellitus without complications; E78.5 Hyperlipidemia, unspecified; Z79.82 Long term (current) use of aspirin; Z79.84 Long term (current) use of oral hypoglycemic drugs; Z79.899 Other long term (current) drug therapy | CPT/HCPCS: 96127; 99212; 99397 ==

== ENCOUNTER 2025-02-06 07:22 | Outpatient (REF) | payer MEDICARE, SELFPAY ==
--- NOTE | ~2025-02-06 | MM_ITS ---
EXAMINATION: MM SCREENING DIGITAL BREAST TOMOSYNTHESIS, BILATERAL CLINICAL INFORMATION: Screening. Asymptomatic. COMPARISON: Mammography: Comparison is made with available priors TECHNIQUE: Digital breast mammography with tomosynthesis is performed in both the craniocaudal and mediolateral oblique views along with computer-aided detection (CAD). FINDINGS: There are scattered areas of fibroglandular density (ACR BI-RADS breast composition Category b). There are no significant masses, abnormal calcifications, or other abnormalities. MM/MM tomosynthesis screening BI IMPRESSION: No mammographic evidence of malignancy. ASSESSMENT: BI-RADS BI-RADS 1 - Negative RECOMMENDATION: Routine annual mammography screening. 1 year F/U This examination should not preclude the clinical evaluation of a suspicious palpable abnormality. This patient's information was entered into a reminder system with a target due date for their next mammogram. Electronically signed by: Nisreen Ramos DO 02/07/2025 04:40 PM EDT
--- OUTSIDE RECORDS SUMMARY | 2025-02-06 07:25 | XMS_ITS | Encounter Summary ---
Author Organization [facility] Address [address] [place] [address] Care Team Providers Care Director Industrial Relations Name Role Phone Simran Baez MD Primary Care Provider Gerhard Foster MD Primary Care Provider Tosin Mitchell MD Primary Care Provider [phone] Encounter Details Date Type Department Care Team Description 02/15/2020 Pt. Non Urgent Medic al Question Adult Medicine [address] [address] Simran Baez MD Social History Tobacco Use Types Packs/Day Years Used Date Smoking Tobacco: Former Smokeless Tobacco: Never Comments:quit age 21 Alcohol Use Standard Drinks/Week Comments Yes 0 (1 standard drink = 0.6 oz pur e alcohol) occasional Sex Assigned at Date Recorded Not on file Job Start Date Occupation Industry Not on file Not on file Not on file documented as of this encounter Miscellaneous Notes * Telephone Encounter - Kamala Orellana M.A. - 02/15/2020 10:48 AM EDTFrom: Catherine Ponce To: Simran Baez MD Sent: 02/15/2020 9:48 AM EDT Subject: medication refill I called yesterday for a refill as the site was down. it was for Pravastain 40mg tab 3 month supply. just wanted to make sure the Doctor received it and called it in. thanks documented in this encounter Plan of Treatment Not on file documented as of this encounter Visit Diagnoses Not on filedocumented in this encounter Care Teams Director Industrial Relations Relationship Specialty Start Date End Date Simran Baez MD PCP - General Internal Medicine 07/02/18 04/16/21 Gerhard Valdez MD PCP - General Internal Medicine 04/17/21 01/05/22 Tosin Ceron MD [address] [place] [id number] PCP - General Internal Medicine 01/06/22 documented as of this encounter
--- OUTSIDE RECORDS SUMMARY | 2025-02-06 07:25 | XMS_ITS | Encounter Summary ---
Author Organization [facility] Address [address] [place] [address] Care Team Providers Care Trousseau Consultant Name Role Phone Simran Baez MD Primary Care Provider Gerhard Foster MD Primary Care Provider Tosin Mitchell MD Primary Care Provider Reason for Visit * Reason Onset Date Comments Mychart Rx Refill 12/06/2019 Encounter Details Date Type Department Care Team Description 12/06/2019 Pt. Non Urgent Medic al Question Adult Medicine [address] [address] Simran Baez MD Social History Tobacco Use [...] encounter Miscellaneous Notes * Telephone Encounter - Cesilia Li M.A. - 12/06/2019 11:09 AM EDTFrom: Catherine Ponce To: Simran Baez MD Sent: 12/06/2019 10:22 AM EDT Subject: medications [facility] just informed me that my script Glipizide 10 mg tablets need to be approved by you. Can you please approve this, but do a 3 month supply this time. I checked and my insurance will now cover a 3 month supply on all my meds. thanks very much. documented in this encounter Plan of Treatment Not on file documented as of this encounter Visit Diagnoses Not on filedocumented in this encounter Care Teams Trousseau Consultant Relationship Specialty Start Date End Date Simran Baez MD PCP - General Internal Medicine 07/02/18 04/16/21 Gerhard Valdez MD PCP - General Internal Medicine 04/17/21 01/05/22 Tosin Ceron MD [address] [place] [id number] PCP - General Internal Medicine 01/06/22 documented as of this encounter
--- OUTSIDE RECORDS SUMMARY | 2025-02-06 07:25 | XMS_ITS | Encounter Summary ---
Author Organization [facility] Address [address] [place] [address] Care Team Providers Care Swimming Pool Installer Name Role Phone Negrito Baez MD Primary Care Provider Gerhard Foster MD Primary Care Provider Tosin Mitchell MD Primary Care Provider [phone] Encounter Details Date Type Department Care Team Description 12/31/2018 Refill [facility] MyChart [address] [place] [address] Md Taylor Social History Tobacco Use Types Packs/Day Years Used Date Smoking Tobacco: Former Smokeless Tobacco: Never Sex Assigned at Date Recorded Not on file Job Start Date Occupation Industry Not on file Not on file Not on file documented as of this encounter Miscellaneous Notes * Telephone Encounter - Zahra Triana - 12/31/2018 10:54 AM EDT Lat iv 08/13/2018 Ov 02/24/2019 No results found for: HGBA1C, MALBUR, MALBCR, CHOL, LDL, HDL, TRIG, GLU, CREAT * Telephone Encounter - Zahra Triana - 12/31/2018 10:51 AM EDTFrom: Catherine Ponce Sent: 12/31/2018 10:49 AM EDT Subject: Request Refill Not On Medication List Request submitted by Catherine Ponce on 12/31/2018 at 10:49:03 AM Form Title: Request Refill Not On Medication List Submitted Data From: Catherine Ponce Primary care provider: NEGRITO BAEZ MD --- Contact Information --- Contact Phone #: [phone] --- Medication Request Information --- Medication name: Metformin hcl 1,000 mg tablet Dosage: 1,000 mg tablet instructions: 1 tablet by mouth twice a day # Dispensed: 60 Ordering Provider: May Lagunas Pharmacy: [address] [place], [place] [phone] Other Details: only have 1 day supply left documented in this encounter Plan of Treatment Not on file documented as of this encounter Visit Diagnoses Not on filedocumented in this encounter Care Teams Swimming Pool Installer Relationship Specialty Start Date End Date Negrito Baez MD PCP - General Internal Medicine 07/02/18 04/16/21 Gerhard Valdez MD PCP - General Internal Medicine 04/17/21 01/05/22 Tosin Ceron MD [address] [place] [address] PCP - General Internal Medicine 01/06/22 documented as of this encounter
--- OUTSIDE RECORDS SUMMARY | 2025-02-06 07:25 | XMS_ITS | Encounter Summary ---
Author Organization [facility] Address [address] [place] [address] Care Team Providers Care Computer Systems Software Engineer Name Role Phone Tosin Ceron MD Primary Care Provider Reason for Visit * Reason Onset Date Comments New Med Request 09/21/2023 Encounter Details Date Type Department Care Team Description 09/21/2023 Telephone Endocrinology - [address] [address] Selina Mesa PA-C [address] [place] [address] New Med Request Social History Tobacco Use Types Packs/Day Years Used Date Smoking Tobacco: Former Cigarettes 1 7 1975 Smokeless Tobacco: Never Comments:quit age 21 Alcohol Use Standard Drinks/Week Comments Yes 0 (1 standard drink = 0.6 oz pur e alcohol) occasional Sex Assigned at Date Recorded Not on file Job Start Date Occupation Industry Not on file Not on file Not on file documented as of this encounter Miscellaneous Notes * Telephone Encounter - Cesilia Quick M.A. - 09/22/2023 8:50 AM EDT Deatiled message left for patient to check with her insurance and let us know. * Telephone Encounter - Selina Mesa PA-C - 09/22/2023 8:18 AM EDT She will need to call her insurance and find out cost of alternative. Usually alternative is Farxiga * Telephone Encounter - Maria Luz Austin - 09/21/2023 3:40 PM EDT Patient is calling today because she received a message that her Jardiance is going up to over $500and can not afford that anymore. She is asking for an alternative documented in this encounter Plan of Treatment Not on file documented as of this encounter Visit Diagnoses Not on filedocumented in this encounter Care Teams Computer Systems Software Engineer Relationship Specialty Start Date End Date Tosin Ceron MD [address] [place] [id number] PCP - General Internal Medicine 01/06/22 documented as of this encounter
--- OUTSIDE RECORDS SUMMARY | 2025-02-06 07:25 | XMS_ITS | Encounter Summary ---
Author Organization [facility] Address [address] [place] [address] Care Team Providers Care Landcare Officer Name Role Phone Tosin Ceron MD Primary Care Provider [phone] Reason for Visit * Reason Comments E-prescribe Rx Request Encounter Details Date Type Department Care Team Description 10/22/2022 Refill Adult Medicine [address] [address] Tosin Ceron MD [address] [place] [address] E-prescribe Rx Request Social History Tobacco Use Types Packs/Day Years Used Date Smoking Tobacco: Former Cigarettes 1 7 1 1975 Smokeless Tobacco: Never Comments:quit age 21 Alcohol Use Standard Drinks/Week Comments Yes 0 (1 standard drink = 0.6 oz pur e alcohol) occasional Sex Assigned at Date Recorded Not on file Job Start Date Occupation Industry Not on file Not on file Not on file documented as of this encounter Miscellaneous Notes * Telephone Encounter - Cesilia Li M.A. - 10/23/2022 12:02 PM EDT Lab Results Component Value Date HGBA1C 8.0 09/01/2022 MALBUR 19.9 09/01/2022 MALBCR 23.6 09/01/2022 CHOL 168 09/01/2022 LDL 78 09/01/2022 HDL 79 09/01/2022 TRIG 59 09/01/2022 GLU 180 09/01/2022 CREAT 0.59 09/01/2022 Pending appt with pcp 12/2022 Last appt 09/03/22 documented in this encounter Plan of Treatment Not on file documented as of this encounter Visit Diagnoses Not on filedocumented in this encounter Care Teams Landcare Officer Relationship Specialty Start Date End Date Tosin Ceron MD [address] [place] [address] PCP - General Internal Medicine 01/06/22 documented as of this encounter
--- OUTSIDE RECORDS SUMMARY | 2025-02-06 07:25 | XMS_ITS | Encounter Summary ---
Author Organization [facility] Address [address] [place] [address] Care Team Providers Care Chief Psychology Name Role Phone Tosin Ceron MD Primary Care Provider [phone] Reason for Visit * Reason Onset Date Comments medication problems 10/01/2023 Encounter Details Date Type Department Care Team Description 10/01/2023 Telephone Endocrinology - [place] [place] [address] Selina Mesa PA-C [address] [place] [address] medication problems Social History Tobacco Use Types Packs/Day Years [...] encounter Miscellaneous Notes * Telephone Encounter - Antonieta Porter M.A. - 10/02/2023 8:31 AM EDT There is an open encounter for this prior authorization already on 09/25/23 * Telephone Encounter - Darcie Nelson M.A. - 10/01/2023 4:34 PM EDT Spoke with patient she is wondering if we received paper work from [facility] to be fill out for her Jardiance. * Telephone Encounter - Maria Luz Austin - 10/01/2023 4:08 PM EDT Patient is calling again checking on the status of her Jardiance. Could she please be called back at 9:45am tomorrow to logistics planning manager her an update. She can be reached at [phone] documented in this encounter Plan of Treatment Not on file documented as of this encounter Visit Diagnoses Not on filedocumented in this encounter Care Teams Chief Psychology Relationship Specialty Start Date End Date Tosin Ceron MD [address] [place] [address] PCP - General Internal Medicine 01/06/22 documented as of this encounter
--- OUTSIDE RECORDS SUMMARY | 2025-02-06 07:25 | XMS_ITS | Encounter Summary ---
Author Organization [facility] Address [address] [place] [address] Care Team Providers Care Environmental Studies Faculty Member Name Role Phone Gehrard Valdez MD Primary Care Provider Tosin Mitchell MD Primary Care Provider [phone] Encounter Details Date Type Department Care Team Description 12/16/2021 Refill Adult Medicine [address] [address] Gerhard Valdez MD Social History Tobacco Use Types Packs/Day [...] encounter Miscellaneous Notes * Telephone Encounter - Massiel Ross PA-C - 12/19/2021 10:26 AM EDT Can have reordered at upcoming visit if appropriate * Telephone Encounter - Cesilia Li M.A. - 12/19/2021 9:46 AM EDT Current order expires 01/11/22 Lab Results Component Value Date NA 136 09/05/2021 K 4.4 09/05/2021 CO2 31 09/05/2021 CL 101 09/05/2021 BUN 11 09/05/2021 CREAT 0.64 09/05/2021 GLU 181 09/05/2021 CA 9.4 09/05/2021 GFR > 60 09/05/2021 Pt uses mail order pharmacy please review pt has appt 01/08/22 documented in this encounter Plan of Treatment Not on file documented as of this encounter Visit Diagnoses Not on filedocumented in this encounter Care Teams Environmental Studies Faculty Member Relationship Specialty Start Date End Date Gerhard Valdez MD PCP - General Internal Medicine 04/17/21 01/05/22 Tosin Ceron MD [address] [place] [id number] PCP - General Internal Medicine 01/06/22 documented as of this encounter
--- OUTSIDE RECORDS SUMMARY | 2025-02-06 07:25 | XMS_ITS | Encounter Summary ---
Author Organization [facility] Address [address] [place] [address] Care Team Providers Care Welt Stitcher Name Role Phone Gerhard Valdez MD Primary Care Provider Tosin Mitchell MD Primary Care Provider [phone] Reason for Visit * Reason Onset Date Comments Mychart Rx Refill 10/11/2021 Encounter Details Date Type Department Care Team Description 10/11/2021 Pt. Non Urgent Medic al Question Adult Medicine [address] [address] Gerhard Valdez MD Social History Tobacco Use [...] Telephone Encounter - Cesilia Li M.A. - 10/11/2021 4:02 PM EDTFrom: Catherine Ponce To: Camelia Valdez Sent: 10/11/2021 3:54 PM EDT Subject: transfer of medication Dejah, I just spoke with [facility] for my medication [id number] tablets. They said they sent an message to your office to have you send the script over to them. Can this be done today possilby? I only have 5 days worth left. This should get me to next Thursday. Thank you very much. Catherine documented in this encounter Plan of Treatment Not on file documented as of this encounter Visit Diagnoses Not on filedocumented in this encounter Care Teams Welt Stitcher Relationship Specialty Start Date End Date Gerhard Valdez MD PCP - General Internal Medicine 04/17/21 01/05/22 Tosin Ceron MD [address] [place] [id number] PCP - General Internal Medicine 01/06/22 documented as of this encounter
--- OUTSIDE RECORDS SUMMARY | 2025-02-06 07:25 | XMS_ITS | Encounter Summary ---
Author Organization [facility] Address [address] [place] [address] Care Team Providers Care Dramatic Arts Historian Name Role Phone Simran Baez MD Primary Care Provider Gerhard Foster MD Primary Care Provider Tosin Mitchell MD Primary Care Provider [phone] Reason for Visit * Reason Onset Date Comments Prior Authorization 03/22/2020 Trulicity Encounter Details Date Type Department Care Team Description 03/22/2020 Pt. Non Urgent Medic al Question Adult Medicine [address] [address] Simran Baez MD Social History Tobacco Use [...] Telephone Encounter - Kamala Orellana M.A. - 03/22/2020 3:21 PM EDTFrom: Catherine Ponce To: Simran Baez MD Sent: 03/22/2020 3:08 PM EDT Subject: med refill needs a verbal auth called over Dejah, I have a new insurance for my meds and they are asking for a verbal authorization be called over to them. This is to help possibly with the cost of my Trulicity. (). I have called 2 times already and asked if someone could do this and was told both times that they would. First g irl said shecouldn't do it because the company ([employer] needed to send paperwork over for it) [employer] said that the doctor needed to call for it. The next time I called the girl was more helpful and said she would call and see what needed to be done. Now I am seeing that they cancelled the order because theystill have not heard from the office on this. Can you or someone call with the verbal authorizationso I can get this med as it is helping me so much with my A1C numbers. Sorry if I sound grumpy, butI really need this. thanks so very much Dr Baez. I know I will be hearing from you. documented in this encounter Plan of Treatment Not on file documented as of this encounter Visit Diagnoses Not on filedocumented in this encounter Care Teams Dramatic Arts Historian Relationship Specialty Start Date End Date Simran Baez MD PCP - General Internal Medicine 07/02/18 04/16/21 Gerhard Valdez MD PCP - General Internal Medicine 04/17/21 01/05/22 Tosin Ceron MD [address] [place] [phone] PCP - General Internal Medicine 01/06/22 documented as of this encounter
--- OUTSIDE RECORDS SUMMARY | 2025-02-06 07:25 | XMS_ITS | Patient Health Record ---
Author Organization [facility] Address [address] [place] [address] Care Team Providers Care Engine Inspector Name Role Phone JEAN-CLAUDE-LORI KATERINE Primary Care Provider Mariaa Gurdeep Reyna Jr Unavailable [phone] Reason For Referral No Information Medications Medication SIG (Take, Route, Frequency, Duration) Notes Start Date End Date Status Loratadine 10 MG 1 tablet Orally Once a day Active Aspir-81 81 MG 1 tablet Orally Once a day Active metFORMIN HCl 1000 MG 1 tablet with meal s Orally Twice a day Active MoviPrep 100 GM as directed before colonoscopy Orally for 1 dose Active glipiZIDE XL 5 MG 1 tablet Orally Once a day Active Suprep Bowel Prep 1 as directed Orally 1 for 1 dose Active Pravastatin Sodium 40 MG 1 tablet Orally Once a day Active Social History Tobacco Use: Social History Observation Description Date Details (start date - stop date) Former Smoker NA - NA Tobacco Use/Smoking Question Answer Notes Patient is a former smoker How long has it been since you last smoked? > 10 years Alcohol Screen Question Answer Notes Did you have a drink contain ing alcohol in the past year? Yes How often did you have a dri nk containing alcohol in the past year? 2 to 3 times a week (3 points) How many drinks did you have on a typical day when you were drinking in the past year? 1 or 2 drinks (0 point) How often did you have 6 or more drinks on one occasion in the past year? 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
--- OUTSIDE RECORDS SUMMARY | 2025-02-06 07:25 | XMS_ITS | Encounter Summary ---
Author Organization [facility] Address [address] [place] [address] Care Team Providers Care Fermenting Cellar Dropper Name Role Phone Tosin Ceron MD Primary Care Provider [phone] Encounter Details Date Type Department Care Team Description 08/31/2022 Pt. Non Urgent Medical Question Adult Medicine [address] [address] Tosin Ceron MD [address] [place] [address] Social History Tobacco Use Types Packs/Day Years Used Date Smoking Tobacco: Former Cigarettes 1 7 1 969 - 1975 Smokeless Tobacco: Never Comments:quit age 21 Alcohol Use Standard Drinks/Week Comments Yes 0 (1 standard drink = 0.6 oz pur e alcohol) occasional Sex Assigned at Date Recorded Not on file Job Start Date Occupation Industry Not on file Not on file Not on file COVID-19 Exposure Response Date Recorded In the last 10 days, have keara u been in contact with someone who was confirmed or suspected to have Coronavirus/COVID-19? No / Unsure 09/03/2022 10:22 AM EDT documented as of this encounter Plan of Treatment Not on file documented as of this encounter Visit Diagnoses Not on filedocumented in this encounter Care Teams Fermenting Cellar Dropper Relationship Specialty Start Date End Date Tosin Ceron MD [address] [place] [address] PCP - General Internal Medicine 01/06/22 documented as of this encounter
--- OUTSIDE RECORDS SUMMARY | 2025-02-06 07:25 | XMS_ITS | Encounter Summary ---
Author Organization [facility] Address [address] [place] [address] Care Team Providers Care Dermatology Sales Representative Name Role Phone Tosin Ceron MD Primary Care Provider [phone] Encounter Details Date Type Department Care Team Description 09/04/2022 Orders Only Adult Medicine [address] [address] Tosin Ceron MD [address] [place] [address] Social History Tobacco Use Types Packs/Day Years [...] on filedocumented in this encounter Care Teams Dermatology Sales Representative Relationship Specialty Start Date End Date Tosni Ceron MD [address] [place] [address] PCP - General Internal Medicine 01/06/22 documented as of this encounter
--- OUTSIDE RECORDS SUMMARY | 2025-02-06 07:25 | XMS_ITS | Encounter Summary ---
Author Organization [facility] Address [address] [place] [address] Care Team Providers Care Highway Maintenance Technician Name Role Phone Tosin Ceron MD Primary Care Provider [phone] Reason for Visit * Reason Comments E-prescribe Rx Request Encounter Details Date Type Department Care Team Description 10/07/2023 Refill Adult Medicine [facility] [address] [place] [address] Aubrey Garcia PA-C [address] [place] [phone] E-prescribe Rx Request Social History Tobacco Use [...] on file documented as of this encounter Plan of Treatment Not on file documented as of this encounter Visit Diagnoses Diagnosis 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
--- OUTSIDE RECORDS SUMMARY | 2025-02-06 07:25 | XMS_ITS | Encounter Summary ---
Author Organization [facility] Address [address] [place] [address] Care Team Providers Care Bed Bug Exterminator Name Role Phone Gerhard Valdez MD Primary Care Provider Tosin Mitchell MD Primary Care Provider [phone] Reason for Visit * Reason Comments E-prescribe Rx Request Encounter Details Date Type Department Care Team Description 12/22/2021 Refill Adult Medicine [address] [address] Gerhard Valdez MD E-prescribe Rx Request Social History Tobacco Use [...] encounter Miscellaneous Notes * Telephone Encounter - Alisson Triana - 12/25/2021 11:23 AM EDT Upcoming 01/08 Lab Results Component Value Date NA 136 09/05/2021 K 4.4 09/05/2021 CO2 31 09/05/2021 CL 101 09/05/2021 BUN 11 09/05/2021 CREAT 0.64 09/05/2021 GLU 181 09/05/2021 CA 9.4 09/05/2021 GFR > 60 09/05/2021 * Telephone Encounter - Radha Boss - 12/24/2021 1:24 PM EDT Possible duplicate, please review documented in this encounter Plan of Treatment Not on file documented as of this encounter Visit Diagnoses Not on filedocumented in this encounter Care Teams Bed Bug Exterminator Relationship Specialty Start Date End Date Gerhard Valdez MD PCP - General Internal Medicine 04/17/21 01/05/22 Tosin Ceron MD [address] [place] [address] PCP - General Internal Medicine 01/06/22 documented as of this encounter
--- OUTSIDE RECORDS SUMMARY | 2025-02-06 07:25 | XMS_ITS | Encounter Summary ---
Author Organization [facility] Address [address] [place] [address] Care Team Providers Care Mobile Designer Name Role Phone Tosin Ceron MD Primary Care Provider [phone] Reason for Visit * Reason Comments E-prescribe Rx Request metformin (GLUCOP LIZZIE) 1000 MG tablet Encounter Details Date Type Department Care Team Description 07/10/[address] [facility] [address] [place] [address] Ceci Heredia PA-C [address] [place] [address] E-prescribe Rx Request (metformin (GLUCOPHAGE) 1000 MG tablet) Social History Tobacco Use Types Packs/Day Years Used Date Smoking Tobacco: Former Cigarettes 1 7 - 1975 Smokeless Tobacco: Never Comments:quit age 21 Alcohol Use Standard Drinks/Week Comments Yes 0 (1 standard drink = 0.6 oz pur e alcohol) occasional Sex Assigned at Date Recorded Not on file Job Start Date Occupation Industry Not on file Not on file Not on file documented as of this encounter Miscellaneous Notes * Telephone Encounter - Cesilia Li M.A. - 07/11/2022 9:15 AM EST Lab Results Component Value Date HGBA1C 7.1 01/03/2022 MALBUR < 5.0 09/05/2021 MALBCR < 38.4 09/05/2021 CHOL 160 09/05/2021 LDL 70 09/05/2021 HDL 75 09/05/2021 TRIG 76 09/05/2021 GLU 181 09/05/2021 CREAT 0.64 09/05/2021 Pending appt with pcp 09/03/22 Current order expires 08/05/22 * Telephone Encounter - Nereyda Herron - 07/11/2022 8:36 AM EST Patient would like script to be: E-PRESCRIBED/FAXED TO PHARMACY WHEN WAS THE PATIENT'S LAST APPOINTMENT IN ADULT MEDICINE? 05-05-22 WHEN WAS THE LAST TIME THE PATIENT SAW THEIR PCP? Same as above Does patient have an upcoming appointment? Yes 09-03-22 (THE MEDICATION REQUESTED IS ON THE MED LIST ABOVE) All of the medications requested were on the CURRENT MEDS list Did you check the Pharmacy information above?: YES Patient wants: 90 -day supply with 3 refills Is this a mail order prescription request ? YES If the refill is from a FAXED refill request what is the RX # listed on the fax? N/A Patients current insurance carrier is: Payor: [facility] MEDIC[facility] FFS / Plan: [facility] MDCR-ADV HMO $0 [place] [id number] / Product Type: HMO [id number] documented in this encounter Plan of Treatment Not on file documented as of this encounter Visit Diagnoses Not on filedocumented in this encounter Care Teams Mobile Designer Relationship Specialty Start Date End Date Tosin Ceron MD [address] [place] [address] PCP - General Internal Medicine 01/06/22 documented as of this encounter
--- OUTSIDE RECORDS SUMMARY | 2025-02-06 07:26 | XMS_ITS | Clinical Summary ---
Author Organization [facility] Address [address] [place] [address] Phone Care Team Providers Care Electrician Front Name Role Phone Simran Plaza MD Primary Care Provider [phone] Allergies No known active allergies Medications Aspirin [...] PCV) 05/09/2021 05/09/2020, 07/08/2011 Influenza Vaccine (#1) 2025 03/15/2018 Pneumococcal Vaccine: Peds ( 0 to 5 Years) and At-Risk Patients (6 to 49 Years) Discontinued 05/09/2020, 07/08/2011 Hepatitis B Vaccine Aged Out No longe r eligible based on patient's age to complete this topic Insurance [facility] Medicare [facility] Medicare Care Teams Electrician Front Relationship Specialty Start Date End Date Simran Plaza MD [address] [place] [address] PCP - General Internal Medicine 02/25/21
--- OUTSIDE RECORDS SUMMARY | 2025-02-06 07:26 | XMS_ITS | Encounter Summary ---
Author Organization [facility] Address [address] [place] [address] Care Team Providers Care Sap Mobility Architect Name Role Phone Tosin Ceron MD Primary Care Provider [phone] Reason for Visit * Reason Comments E-prescribe Rx Request Encounter Details Date Type Department Care Team Description 03/31/2023 Refill Adult Medicine [address] [address] Tosin Ceron MD [address] [place] [address] E-prescribe Rx Request Social History Tobacco Use [...] Recorded In the last 10 days, have yo u been in contact with someone who was confirmed or suspected to have Coronavirus/COVID-19? No / Unsure 03/31/2023 12:49 PM EDT documented as of this encounter Miscellaneous Notes * Telephone Encounter - Aubrey Garcia PA-C - 04/01/2023 5:51 PM EDT Ok to fill. Yaima Verma * Telephone Encounter - Chapis Blunt M.A. - 04/01/2023 1:56 PM EDT Last office visit 03/31/23 Next office visit 04/28/23 Lab Results Component Value Date HGBA1C 7.8 01/16/2023 MALBUR 19.9 09/01/2022 MALBCR 23.6 09/01/2022 CHOL 168 09/01/2022 LDL 78 09/01/2022 HDL 79 09/01/2022 TRIG 59 09/01/2022 GLU 179 01/16/2023 CREAT 0.69 01/16/2023 documented in this encounter Plan of Treatment Not on file documented as of this encounter Visit Diagnoses Not on filedocumented in this encounter Care Teams Sap Mobility Architect Relationship Specialty Start Date End Date Tosin Ceron MD [address] [place] [address] PCP - General Internal Medicine 01/06/22 documented as of this encounter
--- OUTSIDE RECORDS SUMMARY | 2025-02-06 07:26 | XMS_ITS | Encounter Summary ---
Author Organization [facility] Address [address] [place] [address] Care Team Providers Care Salt Plant Operator Name Role Phone Tosin Ceron MD Primary Care Provider [phone] Encounter Details Date Type Department Care Team Description 01/29/2022 Refill Adult Medicine [address] [address] Simran Baez MD Social History Tobacco Use [...] suspected to have Coronavirus/COVID-19? No / Unsure 01/08/2022 8:48 AM EDT documented as of this encounter Miscellaneous Notes * Telephone Encounter - Raul Collins M.A. 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
--- OUTSIDE RECORDS SUMMARY | 2025-02-06 07:26 | XMS_ITS | Clinical Summary ---
Author Organization [facility] Address [address] [place] [address] Phone Care Team Providers Care Material Flow Engineer Name Role Phone Denise Gerard MD Primary Care Provider Allergies No known active allergies Medications pravastatin [...] (TYLENOL 8 HOUR) 650 mg 8 hr tabletIndications :Palmar fascial fibromatosis (dupuytren) Take 1 tablet (650 mg total) by mouth every 8 (eight) hours if needed for mild pain. Do not crush, chew, or split. 30 tablet 4 Active oxyCODONE (ROXICODONE) 5 mg immediate release tabletIndications :Palmar fascial fibromatosis (dupuytren) Take 1 tablet (5 mg total) by mouth every 6 (six) hours if needed for severe pain for up to 6 doses. 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 11/20/2023 Family history of breast cancer in first degree relative 08/07/2023 Hypertension 04/01/2021 Type 2 diabetes mellitus ([facility] V24, [facility] V 28) 03/27/2020 Overview (05/31/2024): Mild nonproliferative diabetic retinopathy noted on bilateral eye examination March 2020 Mild nonproliferative diabetic retinopathy noted on bilateral eye examination March 2020 Dyslipidemia 08/13/2018 Immunizations Name Administration Dates Next Due Influenza trivalent, with pr eservative (Fluzone; Afluria) 6mo and older 03/15/2018 Influenza, Unspecified 04/09/2023,03/06/2022, Homeschool Snowboarding SARS-CoV-2 COVID-19, mRNA, LNP-S, preservative free 03/26/2022,09/30/2021,03/13/2021 [...] mellitus type 2, co ntrolled, without complications ([facility] V24, [facility] V28) DX:Diabetes mellitus type 2, controlled, without complications (HCC) Dyslipidemia DX:Dyslipidemia Uncontrolled type 2 diabetes mellitus with hyperglycemia ([facility] V24, [facility] V28) 02/24/2019 DX:Uncontrolled type 2 diabe adrian mellitus with hyperglycemia (HCC) Dupuytren's disease of [...] 90 06/08/2024 3:50 PM EST Temperature 36.2 C (97.2 F) 06/08/2024 3:22 PM EST Respiratory Rate 20 06/08/2024 3:50 PM EST [...] GFR (Glomerular Filtration Rate) 1955 RSV Immunization Adult Patients (1 - Risk 60-74 years 1-dose series) 2015 Medicare Annual Wellness Visit 05/10/2022 Social Influencers of Health Screening 05/10/2022 Hypertension/CHF/CAD Annual BMP Blood Test 05/11/2022 Zoster Vaccines (3 of 3) 05/21/2022 03/26/2022, 09/2015 Diabetes: Annual Urine Albumin-Creatinine Ratio (uACR) 09/02/2023 09/01/2022 Diabetes: Annual Foot Exam 01/20/2024 01/19/2023 Diabetes: Blood Sugar Control Test (HGBA1C) 01/25/2024 07/27/2023 Diabetes: Annual Retina Eye Exam 04/08/2024 04/08/2023 Depression Screening 06/01/2024 Breast Cancer Screening 01/16/2025 01/17/20 23, 01/13/2023, 01/08/2022, Additional history exists COVID-19 Vaccine ( season) 2025 2024, 04/15/2023, 03/26/2022, Additional history exists Influenza Vaccine (#1) 2025 , 04/09/2023, 05/01/2022, Additional history exists Falls Risk Assessment 06/08/2025 06/08/2024 Colorectal Cancer Screening: Colonoscopy 01/07/2027 01/07/2017 Cholesterol Screening (Lipid Panel) 04/24/2028 04/24/2023 DTaP,Tdap,and Td Vaccines (3 - Td or Tdap) 05/09/2030 05/09/2020, 01/29/2010 Osteoporosis Screening (Bone Density Screening) 09/13/2033 09/14/2023, 03/27/2021 Hepatitis C Screening Addressed 01/03/2019 Overri dden with the intention of not completing the topic Pneumococcal Vaccine: 50+ Years Completed 01/08/2022, 05/09/2020, 07/08/2011 HIB Vaccines Aged Out No longer eligi [...] age to complete this topic Meningococcal B Vaccine Aged Out No l onger eligible based on patient's age to complete this topic RSV Immunization Patients Under 20 months Aged Out No longer eligible based on patient's age to complete this topic Varicella Vaccines Aged Out No longer eligible based on patient's age to complete this topic Procedures Procedure Name Priority Date/Time Associated Diagnosis Comments DXA BONE DENSITY STUDY 1+ SITS AXIAL SKEL Routine 09/14/2023 9:58 AM EDT Encounter for screening for osteoporosis DIAGNOSTIC MAMMOGRAPHY WITH CAD UNILATERAL Routine 01/16/2023 2:52 PM EDT Other abnormal and inconclusive findings on diagnostic imaging of breast from Last 3 Months or Most Recently Relevant to Health Maintenance Results * DXA BONE DENSITY STUDY 1+ SITS AXIAL SKEL (09/14/2023 9:58 AM EDT) Anatomical Region Laterality Modality Bone Densitometr y 07/29/2023 8:17 AM EST Narrative 09/14/2023 7:16 PM EDT STUDY: DUAL ENERGY X-RAY ABSORPTIOMETRY / DXA REASON FOR EXAM: Female, 68 years old osteoporosis TECHNIQUE: Bone Mineral Density (BMD) measurements of the lumbar spine and left hip were obtained using [employer] [facility] W (S/N [id number]). COMPARISON: March 27, 2021 FINDINGS: L1-L4 BMD: 1.062 g/cm2 L1-L4 T score: 0.1. This corresponds to Normal bone density. This represents a -0.9 % decrease in bone density compared with prior exam from March 27, 2021. Left femoral neck BMD: 0.769 g/cm2 Left femoral neck T score: -0.7. This corresponds to Normal bone density. Left total [...] Osteopenia At or below -2.5 SD Osteoporosis Procedure Note Claire Garcia MD - 01/18/2024 STUDY: DUAL ENERGY X-RAY ABSORPTIOMETRY / DXA REASON FOR EXAM: Female, 68 years old osteoporosis TECHNIQUE: Bone Mineral Density (BMD) measurements of the lumbar spineand left hip were obtained using [facility] W (S/N [id number]). COMPARISON: March 27, 2021 FINDINGS: L1-L4 BMD: [...] Osteopenia At or below -2.5 SD Osteoporosis Tosin Ceron MD [facility] [place]ED[place] Final Result * DIAGNOSTIC MAMMOGRAPHY [...] read in conjunction with computer aided detection. Tomosynthesis as well as 2D C-View imaging were obtained. Spot compression views were also obtained. Comparison: Comparison made to multiple prior, most recent January 13, 2023, and most remote August 07, 2017. Breast composition: There are scattered areas of fibroglandular density. Left breast: The asymmetry seen in the inferior breast that appeared extending towards the nipple is pliable with the spot compression, and most likely represented overlapping fibroglandular breast tissue. The morphology of the local parenchyma on today's images is similar to multiple prior studies as far back as 2018. IMPRESSION: Impression: Left breast: Negative, no specific mammographic evidence of malignancy. Normal interval follow-up is recommended in 12 months. Findings and recommendations were communicated to the patient via angiography technologist. BI-RADS: Category 1: Negative Procedure Note [...] Unilateral left digital diagnostic mammography is obtained piedad in conjunction with computer aided detection. Tomosynthesis [...] Relevant to Health Maintenance Insurance [facility] MEDICARE Advance Directives * Full Code - [...] currently active code status orders. Care Teams Material Flow Engineer Relationship Specialty Start Date End Date Denise Gerard MD [address] [place] [address] PCP - General Internal Medicine 05/31/24
--- OUTSIDE RECORDS SUMMARY | 2025-02-06 07:26 | XMS_ITS | Encounter Summary ---
Author Organization [facility] Address [address] [place] [address] Care Team Providers Care Truck Dock Material Mover Name Role Phone Tosin Ceron MD Primary Care Provider [phone] Reason for Visit * Reason Comments E-prescribe Rx Request Encounter Details Date Type Department Care Team Description 07/05/2023 Refill Adult Medicine [address] [address] Tosin Ceron MD [address] [place] [address] E-prescribe Rx Request Social History Tobacco Use [...] encounter Miscellaneous Notes * Telephone Encounter - Margaux Triana - 07/06/2023 2:36 PM EST Faxed to pharmacy * Telephone Encounter - Chapis Blunt M.A. - 07/06/2023 12:46 PM EST Last office visit 04/28/23 Next office visit 07/29/23 Pravastatin filled on 8/21/23 for 90 days with 1 refill (will not have enough until upcoming visit)Please sign Lab Results Component Value Date CHOL 167 04/24/2023 LDL 81 04/24/2023 HDL 74 04/24/2023 TRIG 63 04/24/2023 SGOT 17 04/24/2023 SGPT 45 04/24/2023 Losartan filled on 02/11/23 for 90 days with 1 refill. Will you fill now due to mail order or wait until seen? * Telephone Encounter - Antonieta Varela - 07/06/2023 11:50 AM EST Patient would like script to be: E-PRESCRIBED/FAXED TO PHARMACY WHEN WAS THE PATIENT'S LAST APPOINTMENT IN ADULT MEDICINE? 04/28/23 WHEN WAS THE LAST TIME THE PATIENT SAW THEIR PCP? Same as above Does patient have an upcoming appointment? Yes 07/29/23 pcp (THE MEDICATION REQUESTED IS ON THE MED LIST ABOVE) All of the medications requested were on the CURRENT MEDS list Did you check the Pharmacy information above?: YES Patient wants: 90 -day supply Is this a mail order prescription request ? YES If the refill is from a FAXED refill request what is the RX # listed on the fax? N/A Patients current insurance carrier is: Payor: [facility] / Plan: [facility] MEDICARE COMPLETE $20 SLC [id number] / Product Type: PPO [id number] documented in this encounter Plan of Treatment Not on file documented as of this encounter Visit Diagnoses Not on filedocumented in this encounter Care Teams Truck Dock Material Mover Relationship Specialty Start Date End Date Tosin Ceron MD [address] [place] [address] PCP - General Internal Medicine 01/06/22 documented as of this encounter
--- OUTSIDE RECORDS SUMMARY | 2025-02-06 07:26 | XMS_ITS | Encounter Summary ---
Author Organization [facility] Address [address] [place] [address] Care Team Providers Care Convolute Tube Winder Name Role Phone Simran Baez MD Primary Care Provider [facility] Gerhard Valadez MD Primary Care Provider Tosin Mitchell MD Primary Care Provider Encounter Details Date Type Department Care Team Description 03/28/2021 Teachers' Assistant Report Medical Records [address] [place] [address] Harjeet Lugo MD Social History Tobacco Use Types Packs/Day [...] Exposure Response Date Recorded In the last month, have you been in contact with someone who was confirmed or suspected to have Coronavirus / COVID-19? No / Unsure 03/27/2021 10:36 AM EDT documented as of this encounter Plan of Treatment Not on file documented as of this encounter Visit Diagnoses Not on filedocumented in this encounter Care Teams Convolute Tube Winder Relationship Specialty Start Date End Date Simran Baez MD PCP - General Internal Medicine 07/02/18 04/16/21 Gerhard Valdez MD PCP - General Internal Medicine 04/17/21 01/05/22 Tosin Ceron MD [address] [place] [address] PCP - General Internal Medicine 01/06/22 documented as of this encounter
--- OUTSIDE RECORDS SUMMARY | 2025-02-06 07:26 | XMS_ITS | Encounter Summary ---
Author Organization [facility] Address [address] [place] [address] Care Team Providers Care Seismic Observer Name Role Phone Tosin Ceron MD Primary Care Provider [phone] Reason for Visit * Reason Comments E-prescribe Rx Request Encounter Details Date Type Department Care Team Description 09/08/2023 Refill Endocrinology - [address] [address] Selina Mesa PA-C [address] [place] [address] E-prescribe Rx Request Social History Tobacco Use [...] as of this encounter Visit Diagnoses Diagnosis Type 2 diabetes mellitus with other specified complication, without long-term current use of insulin (HCC) documented in this encounter Care Teams Seismic Observer Relationship Specialty Start Date End Date Tosin Ceron MD [address] [place] [address] PCP - General Internal Medicine 01/06/22 documented as of this encounter
== END 2025-02-06 07:23 | disposition home or self-care (01) ==
LOC: HO.MAMMO 07:22
PROVIDERS: PCP Internal Medicine; Visit Provider Internal Medicine
DX: Z12.31 Encounter for screening mammogram for malignant neoplasm of breast (principal)
CPT/HCPCS: 77063; 77067

== ENCOUNTER → 2025-02-06 07:30 | Outpatient (BNV) | payer MEDICARE, SELFPAY | PROVIDERS: PCP Internal Medicine; Visit Provider Internal Medicine | DX: Z12.31 Encounter for screening mammogram for malignant neoplasm of breast (principal) | CPT/HCPCS: 77063; 77067 ==

== ENCOUNTER 2025-03-28 15:06 | Outpatient (AMB) | payer MEDICARE, SELFPAY ==
--- NOTE | 2025-03-28 15:13 | A.OFFPC_ITS ---
Vital Signs 03/28/25 15:19 Height 5 ft 3.5 in Weight 119 lb 6 oz BMI 20.8 BP 126/74 Blood Pressure Location Rt brachial Position Sitting Respiration 12 Pulse 97 Pulse Source Pulse Oximeter Pulse Oximetry (%) 95 Oxygen Delivery Method Room Air Intake Visit Reasons: MRI Request Intake Note: Left knee MRI. Went to urgent care Quality Improvement Consultant Required: No Allergies No Known Allergies Allergy (Verified 03/28/25 15:19) Tobacco use date assessed: 11/14/24 Dental Screening Dental Screen Date: 11/14/24 HPI HPI Comments History of Present Illness Details 69 year old female with a past medical h istory of type 2 diabetes, hypertension, hyperlipidemia, depression, anemia presenting for physical exam Presenting for left knee pain today. Has been hurting for the past 2 months. Patient has been walking alot at the gym. She has been running down her hill a lot and feels that her knee is unstable. On 03/10 she was doing the laundry and threw something over her head twisting her left knee. -She heard a pop at that time. Worse going downstairs. Bad going upstairs. She was seen at outside urgent care and had xray without fracture Type 2 diabetes: on ozempic 0.5mg, jardiance, metformin 1000mg twice daily. Hemoglobin A1C <7%. Goes to [facility] with exam. No neuropathy. No issues with yeast infection. Takes glucose reading once a day fasting. On ARB, statin. CV: On losartan 25mg daily, pravastatin 40mg daily daily ASA. BP well controlled. Denies chest pain, shortness of breath. Sometimes dizzy when dehydrated or stands. 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 ROS see HPI PHYSICAL EXAM: GENERAL: Alert and oriented x 3. NAD EYES: EOMI. Anicteric. HENT: Moist mucous membranes. No scleral icterus. No cervical lymphadenopathy. LUNGS: Clear to auscultation bilaterally. CARDIOVASCULAR: Regular rate and rhythm. No murmur. No JVD. ABDOMEN: Soft, non-tender +bs MSK: antalgic gait. FROM left knee, +anterior drawer left knee EXTREMITIES: No edema. Non-tender. SKIN: No rashes or lesions. Warm. NEUROLOGIC: No focal neurological deficits. CN II-XII grossly intact PSYCHIATRIC: Cooperative. 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 Current occupational exposures/hazards: No Cognitive needs: No Hearing needs: No Vision needs: Yes (glasses) Questionnaire Thrive Questionnaire Date Thrive assessed: 07/25/24 I am a: Patient What is your living situation today?: I have a steady place to live Within the past 12 months, did the food you bought not last and you didn't have the money to get more?: Never true Within the past 12 months, did you worry whether your food would run out before you got money to buy more?: Never true Do you have trouble paying for medicines?: No Do you have trouble getting transportation to medical appointments?: No Do you have trouble paying your heating and electricity bill?: No Do you have trouble taking care of your child, family member or friend?: No Do you have trouble with day-to-day activities such as bathing, preparing meals, shopping, managing finances, etc.?: No Are you currently unemployed and looking for a job?: No Are you interested in more education?: No Please select the resources that you would like help with: None Currently or been in a relationship where the following occur: No concerns reported THRIVE Score: 0 TERRENCE-7 AMB Questionnaire TERRENCE-7 Date TERRENCE - 7 assessed: 11/14/24 Source: Developed by Drs. Sid Figueroa, Merced Horton, Leon Harrington and colleagues, with an educational arcenio from [employer]. Physical exam (Primary Care) Vital Signs: Last Vital Signs Pulse 97 03/28/25 15:19 Resp 12 03/28/25 15:19 BP 126/74 03/28/25 15:19 Pulse Ox 95 03/28/25 15:19 Oxygen Delivery Method Room Air 03/28/25 15:19 BMI result Body Mass Index 20.8 Tobacco/Smoking Status: Tobacco use Status Tobacco use date assessed 11/14/24 03/28/25 15:13 Patient Tobacco Use Status Former Tobacco user 03/28/25 15:13 e-Cigarette/Vaping Use Never Used 03/28/25 15:13 Thrive Assessment: Date of Thrive Assessment Date Thrive assessed 07/25/24 03/28/25 15:13 Currently or been in a relationship where the following occur: No concerns reported Coding Level of Care Code Est Pt Level 4 (01107) Complex EM visit Add On G2211 Diagnoses Rupture of anterior cruciate ligament of left knee, subsequent encounter S83.512D Encounter type: subsequent encounter Acute pain of left knee M25.562 Chronicity: acute Assessment & Plan Assessment & Plan (1) Left ACL tear: Code(s): S83.512A - Sprain of anterior cruciate ligament of left knee, initial encounter Category: Medical Qualifiers: Encounter type: subsequent encounter Qualified Code(s): S83.512D - Sprain of anterior cruciate ligament of left knee, subsequent encounter (2) Left knee pain: Code(s): M25.562 - Pain in left knee Category: Medical Qualifiers: Chronicity: acute Qualified Code(s): M25.562 - Pain in left knee Plan Acute left knee injury concerning for ACL pathology MRI ordered Referral to ortho Pain control prn Orders: Orders MR knee LT wo con 03/28/25 S83.512A - Sprain of anterior cruciate ligament of left knee, initial encounter Referrals Orthopedics Referral M25.562 - Pain in left knee Medications: New prednisone 40 mg (2 x 20 mg) PO DAILY 10 tabs 0RF
[2025-03-28 15:19] VITALS: BP 126/74; PULSE 97; RESP 12; O2SAT 95; BMI 20.8
--- OUTSIDE RECORDS SUMMARY | 2025-03-28 19:34 | XMS_ITS ---
Author Name [facility] Organization Unknown History of Medication Use Medication Directions Dispensed Refills Start Date End Date Stat us Jardiance 12/08/2024 active Ozempic 10/13/2024 active pravastatin sodium 08/02/2024 ac tive losartan potassium 06/14/2024 ac tive Encounters Encounter Type Encounter Reason Primary Diagnosis Location Date Ambulatory TBE Unspecified inte rnal derangement of unspecified knee [facility]) 03/10/2025 Ambulatory [facility]) 03/10/2025 Care Team Organization Name Specialty Phone Email Start Date End Da te [facility] 03/15[facility]2025 [facility] 03/10/2025
--- OUTSIDE RECORDS SUMMARY | 2025-03-28 19:34 | XMS_ITS | Patient Health Record ---
Author Organization [facility] Address [address] [place] [address] Care Team Providers Care Ethylene Compressor Operator Name Role Phone JEAN-CLAUDE-LORI KATERINE Primary Care Provider Mariaa Gurdeep Reyna Jr Unavailable Reason For Referral No Information Medications Medication SIG (Take, Route, Frequency, Duration) Notes Start Date End Date Status Loratadine 10 MG 1 tablet Orally Once a day Active Aspir-81 81 MG 1 tablet Orally Once a day Active metFORMIN HCl 1000 MG 1 tablet with meal s Orally Twice a day Active MoviPrep 100 GM as directed before colonoscopy Orally; Duration: 1 dose Active glipiZIDE XL 5 MG 1 tablet Orally Once a day Active Suprep Bowel Prep 1 as directed Orally 1 ; Duration: 1 dose Active Pravastatin Sodium 40 MG [...] Problem Status W/U Status Risk Notes Problem Colon cancer screening (942950313) Colon cancer screening (Z12.11) Active confirmed Problem Pre-procedure evaluation check (512356615) Encounter for other preprocedural examination (Z01.818) Active confirmed Problem Long-term current use of antiplatelet drug (454143537294222 ) detention (current) use of aspirin (Z79.82) Active confirmed Plan Of Treatment Future Test Test Name Order Date COLONOSCOPY 10/15/2016 Insurance Providers Payer Name Payer Address Payer Phone Subscriber Number Group Number Insured Name Patient Relationship to Insured Coverage Start Date Coverage End Date [facility] [address] [place] [address] [id number] [address] [place] Self - patient is the insured Medical (General) History Medical History History ICD Code diabetes mellitus elevated cholesterol
--- OUTSIDE RECORDS SUMMARY | 2025-03-28 19:34 | XMS_ITS | Clinical Summary ---
Author Organization [facility] Address [address] [place] [address] Phone Care Team Providers Care Rating Clerk Name Role Phone Denise Gerard MD Primary Care Provider [phone] Allergies No known active allergies Medications pravastatin [...] 08/07/2023 Hypertension 04/01/2021 Type 2 diabetes mellitus ([facility] V24, [facility] V 28) 03/27/2020 Overview (05/31/2024): Mild nonproliferative diabetic retinopathy noted on bilateral eye examination March 2020 Mild nonproliferative diabetic retinopathy noted on bilateral eye examination March 2020 Dyslipidemia 08/13/2018 Immunizations Immunization Administration Dates Next Due Influenza trivalent, with pr eservative (Fluzone; Afluria) 6mo and older 03/15/2018 Influenza, Unspecified 04/09/2023,03/06/2022, Future Fleet SARS-CoV-2 COVID-19, mRNA, LNP-S, preservative free 03/26/2022,09/30/2021,03/13/2021 [...] mellitus type 2, co ntrolled, without complications ([facility] V24, [facility] V28) DX:Diabetes mellitus type 2, controlled, without complications (HCC) Dyslipidemia DX:Dyslipidemia Uncontrolled type 2 diabetes mellitus with hyperglycemia ([facility] V24, [facility] V28) 02/24/2019 DX:Uncontrolled type 2 diabe adrian [...] RSV Immunization Adult Patients (1 - Risk 50-74 years 1-dose series) 2005 Medicare Annual Wellness Visit 05/10/2022 Social Influencers [...] spine and left hip were obtained using [employer] W (S/N [id number]). COMPARISON: March 27, 2021 FINDINGS: L1-L4 BMD: [...] lumbar spineand left hip were obtained using [employer] W (S/N [id number]). COMPARISON: March 27, 2021 FINDINGS: L1-L4 BMD: [...] below -2.5 SD Osteoporosis Tosin Ceron MD [facility] DXA PROCEDURES Final Result * DIAGNOSTIC MAMMOGRAPHY [...] recommendations were communicated to the patient via sand technologist. BI-RADS: Category 1: Negative Procedure Note [...] Most Recently Relevant to Health Maintenance Insurance [facility] MEDICARE Advance Directives * Full Code [...] currently active code status orders. Care Teams Rating Clerk Relationship Specialty Start Date End Date Denise Gerard MD [address] [place] [address] PCP - General Internal Medicine 05/31/24
--- OUTSIDE RECORDS SUMMARY | 2025-03-28 19:34 | XMS_ITS | Clinical Summary ---
Author Organization [facility] Address [address] [place] [address] Phone Care Team Providers Care Infant Room Teacher Name Role Phone Simran Plaza MD Primary Care Provider [phone] Allergies No known active allergies Medications Aspirin [...] patient's age to complete this topic Insurance [facility] Medicare [facility] Medicare Care Teams Infant Room Teacher Relationship Specialty Start Date End Date Simran Plaza MD [address] [place] [address] PCP - General Internal Medicine 02/25/21
--- OUTSIDE RECORDS SUMMARY | 2025-03-28 19:34 | XMS_ITS | Data Portability ---
Author Organization [facility] Address [address] [place] [address] Care Team Providers Care Elastic Cutter Name Role Phone DARINEL CHOWDHURY Primary Care Provider [phone] Assessment No assessment recorded. Plan of Treatment Reminders Order Date Submit Date Provider Last Modified By Organization Details Last Modified Time Details Appointments None recorded. Lab None recorded. Referral gynecologis t referral 2022 023 [email or web address] Not available 09:17:23 Procedures None recorded. Surgeries None recorded. Imaging None recorded. Medication Orders None recorded. Patient TargetsNo targets recorded. Patient Instructions Encounter Date Encounter Id Patient Instructions Last Modified By Organization Details Last Modified Time 11/26/2022 [id number] Skin Cyst: Care Instructions [email or web address] Not available 11/26/2022 09:15:35 Reason for Referral Career Services Assistant Referral for Ep idermoid cyst of skin Right Labia Cyst - Appears Benign. Follow up if does not open on it's own. Referring Physician: Alisson Corbett, Urgent Care, Encounter Date: 11/26/2022 Problems Name Problem SNOMED Code Status Onset Date Resolution Date Notes Provider Name and Address Organization Details Recorded Time Diabetes mellitus 11932505 Active 2022 MANNY Aguayo [facility] 08:36:43 Hypertensive disorder 67352778 Active 2022 MANNY Aguayo [facility] 08:36:52 Problem Notes None recorded. [...] Not Available Not Available Vitals Date Recorded Systolic And Diastolic Provider Name and Address Organization Details Last Updated DateTime 11/26/2022 130/86 mm[Hg] MANNY PAVON [facility] [place] Enoch LoweryMILA fischer, [address], [place] - [facility] 11/26/2022 09:15:56 Date Recorded Body height Body mass index (BMI) Body weight Pain severity - 0-10 verbal numeric rating [Score] - Reported Respiratory rate Heart rate Oxygen saturation Oxygen saturation in Arterial blood by Pulse oximetry Body temperature Systolic And Diastolic Provider Name and Address Organization Details Last Updated DateTime 161.29 cm 24.2 kg/m2 47555.3 4 g 0 18 /min 101 /min 96 % 96 % 98.4 [degF] 144/90 mm[Hg] Jordana Carbajal PA [employer] [facility] 08:39:37 Social History Question Answer Notes LastModified by [employer] Details LastModified Time Tobacco Smoking Status Former Smoker Jordana coffey [place] - [facility] 11/26/2022 08:37:59 When Did You Quit Smoking? 16+yearssinc elastcigaret te Information not available 11/26/2022 Have You Recently Traveled Abroad? No Information not available 11/26/2022 Sex: Unknown Functional Status Question Answer Note LastModified by [employer] Details LastModified Time How many times per week do you consume alcohol? 1-2 times per week Information not available 11/26/2022 Do you use any illicit or recreational drugs? No Information not available 11/26/2022 Do you or have you ever used any other forms of tobacco or nicotine? No Information not available 11/26/2022 What is your level of alcohol consumption? Occasional Information not available 11/26/2022 Mental Status None recorded. Family History Relationship Description Onset Age of this Age Resolved Age Notes LastModified by Organization Details LastModified Time Sister Malignant neoplasm of breast emonfette Not available 2022 08:37:08 [...] Diagnosis SNOMED-CT Code Diagnosis ICD10 Code Diagnosis IMO Codes Diagnosis Note [id number] [facility] [address] [address] 11/16/2021 08:17:34 11/16/2021 09:20:57 [id number] [place] [address] [address] 11/26/2022 08:10:16 11/26/2022 09:17:23 Epidermoid cyst of skin 627808708 L72.0 In the right labia majora. This [...] Inability to urinate. Thank you for using [employer]! Health Concerns Section Related Observation LastModified by Organization Detai ls LastModified Time None Recorded Concern Status LastModified by Organization Details LastModified Time None Recorded Advance Directives Directive None Recorded Payers Insurance Date Sequence Insurance Name Policy Number Policy Zamarripa Covered Member ID Zamarripa Member ID Guarantor Name 11/26/2022 1 [facility] (MEDICARE REPLACEMENT/A DVANTAGE - HMO) [id number] Catherine Ponce [id number] Catherine Ponce 11/26/2022 2 MEDICARE B-[place]: [employer] Catherine Ponce [id number] Catherine Ponce Notes Date Note Type Note Provider Name and Address Organization Details Recorded Time 11/26/2022 text/html Vaginal DischargeReported by PatientGU ProblemsFor source of patient information, patient reportsinformation obtained from patient. For location, patient reportsvaginal. For onset/timing, patient reportssudden. For context, patient reportsnot sexually activeandno prior history of stds. For associated symptoms, patient reportsno flank pain,no blood in the urine,no pain during urination,no vaginal discharge, andno urgency. For quality, (no pain). For modifying factors, (did try warm water.).The patient states she was taking a shower [...] or bleeding. No urinary symptoms. MANNY PAVON [address] [place], [address], [place] - [facility] 11/26/2022 09:18:25 OBGyn Episode No OBEpisode recorded.
== END 2025-03-28 17:05 | disposition home or self-care (01) ==
LOC: HO.HMCFM 15:07
PROVIDERS: PCP Internal Medicine; Visit Provider Internal Medicine
DX: S83.512D Sprain of anterior cruciate ligament of left knee, subsequent encounter (principal); M25.562 Pain in left knee

== ENCOUNTER → 2025-03-28 15:06 | Outpatient (BNVA) | payer MEDICARE, SELFPAY | PROVIDERS: PCP Internal Medicine; Visit Provider Internal Medicine | DX: M25.562 Pain in left knee (principal); S83.512D Sprain of anterior cruciate ligament of left knee, subsequent encounter; I10 Essential (primary) hypertension; E11.9 Type 2 diabetes mellitus without complications; E78.5 Hyperlipidemia, unspecified; Z79.82 Long term (current) use of aspirin; Z79.84 Long term (current) use of oral hypoglycemic drugs; Z79.899 Other long term (current) drug therapy | CPT/HCPCS: 99212 ==

== ENCOUNTER → 2025-04-19 07:45 | Outpatient (BNV) | payer MEDICARE, SELFPAY | PROVIDERS: PCP Internal Medicine; Visit Provider Radiology Diagnostic Ultrasound | DX: S83.512A Sprain of anterior cruciate ligament of left knee, initial encounter (principal); M17.12 Unilateral primary osteoarthritis, left knee; M25.462 Effusion, left knee; M71.21 Synovial cyst of popliteal space [Baker], right knee | CPT/HCPCS: 73721 ==

== ENCOUNTER 2025-04-19 07:54 | Outpatient (REF) | payer MEDICARE, SELFPAY ==
--- NOTE | ~2025-04-19 | MR_ITS ---
EXAMINATION: MR KNEE WITHOUT CONTRAST, LEFT CLINICAL INFORMATION: Sprain of ACL. Knee pain. COMPARISON: None available. TECHNIQUE: MRI of the knee without contrast was performed using routine sequences on a high-field scanner. FINDINGS: MENISCI: Medial Meniscus: Irregular tear of the posterior root. Degenerative signal otherwise in the posterior horn. Lateral Meniscus: Degenerative fraying/ill-defined tear of the posterior root/central posterior horn. LIGAMENTS: Cruciate: Mild T2 signal the posterior fibers ACL could reflect mucoid degeneration or sprain. No ligament discontinuity or laxity is seen. Mild T2 signal in the PCL could reflect mucoid degeneration or sprain.. Collateral: Intact EXTENSOR MECHANISM: Intact ARTICULAR CARTILAGE/BONE: Patellofemoral Compartment: Mild arthritis, with chondromalacia, marginal osteophytes. Medial Compartment: Mild-moderate arthritis, nonuniform chondral thinning. Subchondral femoral edema. Lateral Compartment: Mild arthritis No fracture. No aggressive marrow replacing lesion JOINT FLUID AND BURSAE: Small effusion. Small Stinson's cyst. Subcutaneous edema. MR/MR knee LT wo con IMPRESSION: * Tear of the medial meniscal posterior root. * Degenerative fraying/tear of the lateral meniscal posterior root/posterior horn. * ACL and PCL findings could represent mucoid degeneration or sprain. * Tricompartment arthritis *Small effusion. Small Stinson's cyst. Electronically signed by: Dany Chairez MD 04/19/2025 08:53 AM [facility]
--- OUTSIDE RECORDS SUMMARY | 2025-04-19 15:27 | XMS_ITS | Data Portability ---
Author Organization [facility] [address] Address [address] [place] [address] Care Team Providers Care Bounty Trapper Name Role Phone DARINEL CHOWDHURY Primary Care Provider [phone] Assessment No assessment recorded. 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 Follow up if does not open on it's own. Referring Physician: Alisson Corbett, Urgent Care, Encounter Date: 11/26/2022 Problems Name Problem SNOMED Code Status Onset Date Resolution Date Notes Provider Name and Address Organization Details Recorded Time Diabetes mellitus 49405221 Active 2022 MANNY Aguayo [facility] 08:36:43 Hypertensive disorder 90877880 Active 2022 MANNY Aguayo [facility] 08:36:52 Problem Notes None recorded. [...] Updated DateTime 11/26/2022 130/86 mm[Hg] MANNY PAVON [facility] Enoch [place]ILA fischer, [address], [place] - [facility] 11/26/2022 09:15:56 Date Recorded Body height Body mass index (BMI) Body weight Pain severity - 0-10 verbal numeric rating [Score] - Reported Respiratory rate Heart rate Oxygen saturation Oxygen saturation in Arterial blood by Pulse oximetry Body temperature Systolic And Diastolic Provider Name and Address Organization Details Last Updated DateTime 161.29 cm 24.2 kg/m2 13628.3 4 g 0 18 /min 101 /min 96 % 96 % 98.4 [degF] 144/90 mm[Hg] Jordana Carbajal PA [facility] 08:39:37 Social History Question Answer Notes LastModified by [employer] Details LastModified Time Tobacco Smoking Status Former Smoker Jordana coffey [place] - [facility] 11/26/2022 08:37:59 When Did You Quit Smoking? 16+yearssinc elastcigaret te Information not available 11/26/2022 Have You Recently Traveled Abroad? No Information not available 11/26/2022 Sex: Unknown Functional Status Question Answer Note LastModified by [employer] Details LastModified Time How many times per [...] ICD10 Code Diagnosis IMO Codes Diagnosis Note [id number] _[facility] [address] [address] 11/16/2021 08:17:34 11/16/2021 09:20:57 [id number] [place] [address] [address] 11/26/2022 08:10:16 11/26/2022 09:17:23 Epidermoid cyst of skin 600670972 L72.0 In the right labia majora. This [...] Inability to urinate. Thank you for using [employer]! Health Concerns Section Related Observation LastModified by Organization Detai ls LastModified Time None Recorded Concern Status LastModified by Organization Details LastModified Time None Recorded Advance Directives Directive None Recorded Payers Insurance Date Sequence Insurance Name Policy Number Policy Zamarripa Covered Member ID Zamarripa Member ID Guarantor Name 11/26/2022 1 [facility] (MEDICARE REPLACEMENT/A DVANTAGE - HMO) [id number] Catherine Ponce [id number] Catherine Ponce 11/26/2022 2 MEDICARE B-[place]: [employer] Catherine Ponce [id number] Catherine Ponce Notes Date Note Type Note [...] symptoms. MANNY PAVON [address] [place], [address], [place] - [facility] 11/26/2022 09:18:25 OBGyn Episode No OBEpisode recorded.
== END 2025-04-19 07:55 | disposition home or self-care (01) ==
LOC: HO.MRI 07:54
PROVIDERS: PCP Internal Medicine; Visit Provider Internal Medicine
DX: S83.521A Sprain of posterior cruciate ligament of right knee, initial encounter (principal)
CPT/HCPCS: 73721

== ENCOUNTER 2025-05-09 07:43 | Outpatient (AMB) | payer MEDICARE, SELFPAY ==
--- NOTE | 2025-05-09 08:06 | MHC.OFFVIS ---
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 The patient states that several months ago she twisted her knee while hanging laundry. She had acute onset of pain along the medial aspect of her knee. She has tried Tylenol and anti-inflammatory medicines which gave her mild relief. Allergies No Known Allergies Allergy (Verified 05/09/25 08:07) Medication List - Last Reconciled 05/09/25 by Ted Chen MD Accu-Chek Guide Glucose Meter (blood-glucose meter) once daily NS Accu-Chek Guide test strips (blood sugar diagnostic) once daily NS Accu-Chek Softclix Lancets (lancets) one time daily NS aspirin 81 mg PO DAILY blood sugar diagnostic (Accu-Chek Guide test strips) DX E11, use to test fasting glucose once daily blood-glucose meter (Accu-Chek Guide Glucose Meter) DX E11, use to test fasting glucose once daily empagliflozin (Jardiance) 10 mg PO DAILY lancets (Accu-Chek Softclix Lancets) Use to test glucose once daily dx E11 loratadine 10 mg PO DAILY losartan 12.5 mg (1/2 x 25 mg) PO DAILY metformin 1,000 mg PO BID multivitamin 1 tab PO DAILY pravastatin 40 mg PO DAILY prednisone 40 mg (2 x 20 mg) PO DAILY semaglutide 0.5 mg (0.736 mL) subcut QWEEK PFSH Surgical History History of colonoscopy (~01/07/18) No pertinent past surgical history Family History Father HTN (hypertension) Hypercholesteremia Cardiovascular disease Mother Cardiovascular disease Other Diabetes Substance use Social History Housing: House Alcohol intake: former Patient Tobacco Use Status: Former Tobacco user Years Smoked: teenage years e-Cigarette/Vaping Use: Never Used service: No Current occupational status: employed 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 Current occupational exposures/hazards: No Cognitive needs: No Hearing needs: No Vision needs: Yes (glasses) Physical Exam Const Other: Well-nourished well-developed very friendly female awake alert and oriented x3 in no acute distress Extrem Other: Left knee examination shows a minimal effusion, mild crepitus with range of motion, tenderness along her medial joint line, positive Kerwin's test, no instability Results Reviewed Results Reviewed: Standing full weight-bearing x-rays of the patient's left knee show mild diffuse joint space narrowing, no acute bony abnormalities MRI of the patient's left knee shows mild diffuse degenerative changes as well as a tear of the medial meniscus Assessment & Plan Assessment & Plan (1) Tear of medial meniscus of left knee: Code(s): S83.242A - Other tear of medial meniscus, current injury, left knee, initial encounter Category: Medical Plan Ms. Ponce presents with intermittent left knee pain and mechanical symptoms due to a medial meniscus tear. I had a lengthy discussion with the patient regarding the treatment options. At this point the patient's symptoms are tolerable to her. She will continue with her activity modifications. She will follow up with me on an as-needed basis should her symptoms worsen in any way. Feel free to call me at any time should questions regarding her orthopedic management arise. I spent 20 minutes in reviewing the patient's records and imaging studies, seeing the patient and documenting in the medical record. Orders: Orders XR knee LT 3V Today M25.562 - Pain in left knee Coding Level of Care Code New Pt Level 3 (99747) Complex visit Add On G2211 Diagnoses Tear of medial meniscus of left knee S83.242A
--- OUTSIDE RECORDS SUMMARY | 2025-05-09 08:07 | XMS_ITS | Clinical Summary ---
Author Organization [facility] Address [address] [place] [address] Phone Care Team Providers Care Director Of Women'S Services Name Role Phone Simran Plaza MD Primary Care Provider [phone] Allergies No known active allergies Medications Aspirin [...] patient's age to complete this topic Insurance [facility] Medicare [facility] Medicare Care Teams Director Of Women'S Services Relationship Specialty Start Date End Date Simran Plaza MD [address] [place] [address] PCP - General Internal Medicine 02/25/21
--- OUTSIDE RECORDS SUMMARY | 2025-05-09 08:07 | XMS_ITS | Clinical Summary ---
Author Organization [facility] Address [address] [place] [address] Phone Care Team Providers Care Ethics Manager Name Role Phone Denise Gerard MD Primary Care Provider [phone] Allergies No known active allergies Medications pravastatin [...] 6mo and older 03/15/2018 Influenza, Unspecified 04/09/2023,03/06/2022, [employer] SARS-CoV-2 COVID-19, mRNA, LNP-S, preservative free 03/26/2022,09/30/2021,03/13/2021 [...] mellitus type 2, co ntrolled, without complications (CMS/[facility] V24, CMS/[facility] V28) DX:Diabetes mellitus type 2, controlled, without complications (HCC) Dyslipidemia DX:Dyslipidemia Uncontrolled type 2 diabetes mellitus with hyperglycemia (CMS/[facility] V24, CMS/[facility] V28) 02/24/2019 DX:Uncontrolled type 2 diabe adrian [...] Orientation Straight 06/08/2024 10 :21 AM EST Last Filed Vital Signs Vital Sign Reading [...] spine and left hip were obtained using [employer] Discovery W (S/N 27840). COMPARISON: March 27, 2021 FINDINGS: L1-L4 BMD: [...] lumbar spineand left hip were obtained using [employer] Discovery W (S/N 05145). COMPARISON: March 27, 2021 FINDINGS: L1-L4 BMD: [...] below -2.5 SD Osteoporosis Tosin Ceron MD IM DXA PROCEDURES Final [...] recommendations were communicated to the patient via radiographic technologist. BI-RADS: Category 1: Negative Procedure Note [...] Most Recently Relevant to Health Maintenance Insurance [employer] MEDICARE Advance Directives * Full [...] currently active code status orders. Care Teams Ethics Manager Relationship Specialty Start Date End Date Denise Gerard MD [address] [place] [id number] PCP - General Internal Medicine 05/31/24
== END 2025-05-09 08:31 | disposition home or self-care (01) ==
LOC: HO.HOS 07:44
PROVIDERS: PCP Internal Medicine; Visit Provider Orthopaedic Surgery
DX: S83.242A Other tear of medial meniscus, current injury, left knee, initial encounter (principal)
CPT/HCPCS: 99203; G2211

== ENCOUNTER → 2025-05-09 07:46 | Outpatient (BNV) | payer MEDICARE, SELFPAY | PROVIDERS: Visit Provider Radiology Diagnostic Ultrasound | DX: M17.12 Unilateral primary osteoarthritis, left knee (principal) | CPT/HCPCS: 73562 ==

== ENCOUNTER 2025-05-09 08:34 | Outpatient (REF) | payer MEDICARE, SELFPAY ==
--- NOTE | ~2025-05-09 | XR_ITS ---
EXAMINATION: XR KNEE, LEFT CLINICAL INFORMATION: M25.562 - Pain in left knee COMPARISON: None available. TECHNIQUE: Four views of the left knee. FINDINGS: No visible acute fracture, dislocation or suspicious bony lesion. Mild medial and patellofemoral compartment arthritis, with marginal osteophytes. Small effusion. No abnormal soft tissue calcification. XR/XR knee LT 3V IMPRESSION: No acute findings. Arthritis as above Electronically signed by: Dany Chairez MD 05/09/2025 04:08 PM [facility]
== END 2025-05-09 08:35 | disposition home or self-care (01) ==
LOC: HO.HOSX 08:34
PROVIDERS: Visit Provider Orthopaedic Surgery
DX: S83.242A Other tear of medial meniscus, current injury, left knee, initial encounter (principal)
CPT/HCPCS: 73562

== ENCOUNTER 2025-05-16 07:24 | Outpatient (REF) | payer MEDICARE, SELFPAY ==
--- OUTSIDE RECORDS SUMMARY | 2025-05-16 07:27 | XMS_ITS | Clinical Summary ---
Author Organization [address] [facility] Address [address] [place] [address] Phone Care Team Providers Care Scrapper Name Role Phone Denise Gerard MD Primary Care Provider [phone] Allergies No known active allergies Medications pravastatin [...] 6mo and older 03/15/2018 Influenza, Unspecified 04/09/2023,03/06/2022, [employer] SARS-CoV-2 COVID-19, mRNA, LNP-S, preservative free 03/26/2022,09/30/2021,03/13/2021 [...] mellitus type 2, co ntrolled, without complications (CMS/[facility] V24, CMS/[facility] V28) DX:Diabetes mellitus type 2, controlled, without complications (HCC) Dyslipidemia DX:Dyslipidemia Uncontrolled type 2 diabetes mellitus with hyperglycemia (CMS/[facility] V24, CMS/[facility] V28) 02/24/2019 DX:Uncontrolled type 2 [...] spine and left hip were obtained using [employer] W (S/N [id number]). COMPARISON: March 27, 2021 FINDINGS: L1-L4 BMD: [...] lumbar spineand left hip were obtained using [employer] Discovery W (S/N 13744). COMPARISON: March 27, 2021 FINDINGS: L1-L4 BMD: [...] recommendations were communicated to the patient via glass technologist. BI-RADS: Category 1: Negative Procedure Note [...] currently active code status orders. Care Teams Scrapper Relationship Specialty Start Date End Date Denise Gerard MD [address] [place] [phone] PCP - General Internal Medicine 05/31/24
--- OUTSIDE RECORDS SUMMARY | 2025-05-16 07:27 | XMS_ITS | Patient Health Record ---
Author Organization [facility] Address [address] [place] [address] Care Team Providers Care Unit Aid Name Role Phone JEAN-CLAUDE-LORI KATERINE Primary Care Provider Mariaa Gurdeep Reyna Jr Reason For Referral No Information Medications Medication SIG (Take, Route, Frequency, Duration) Notes Start Date End Date Status Loratadine 10 MG Tablet 1 tablet Orally Once a day Active Aspir-81 81 MG Tablet Delayed Release 1 tablet Orally Once a day Active metFORMIN HCl 1000 MG Tablet 1 tablet with meals Orally Twice a day Active MoviPrep 100 GM Solution Reconstituted as directed before colonoscopy Orally; Duration: 1 dose Active glipiZIDE XL 5 MG Tablet Extended Release 24 Hour 1 tablet Orally Once a day Active Suprep Bowel Prep 1 Solution as directed Orally 1; Duration: 1 dose Active Pravastatin Sodium 40 MG Tablet 1 tablet Orally Once a day Active Social History Tobacco Use: Social History Observation Description Date Details (start date - stop date) Former Smoker NA - NA Social History Drugs/Alcohol: Social Info Question Answer Notes Alcohol Screen Did you have a drink containing alcohol in the past year? Yes How often did you have a drink containing alcohol in the past year? 2 to 3 times a week (3 points) How many drinks did you have on a typical day when you were drinking in the past year? 1 or 2 drinks (0 point) How often did you have 6 or more drinks on one occasion in the past year? Never (0 point) Points 3 Interpretation Positive Tobacco Use: Social Info Question Answer Notes Tobacco Use/Smoking Patient is a former smoker How long has it been since you last smoked? 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
--- OUTSIDE RECORDS SUMMARY | 2025-05-16 07:28 | XMS_ITS | Data Portability ---
Author Organization [facility] Address [address] [place] [address] Care Team Providers Care Pattern Layout Worker Name Role Phone DARINEL CHOWDHURY Primary Care [...] By Organization Details Last Modified Time 11/26/2022 [id number] Skin Cyst: Care Instructions Not available 11/26/2022 09:15:35 Reason for Referral Public Relations Supervisor Referral for Ep idermoid cyst of skin Right Labia Cyst - Appears Benign. Follow up if does not open on it's own. Referring Physician: Alisson Corbett, Urgent Care, Encounter Date: 11/26/2022 Problems Name Problem SNOMED Code Status Onset Date Resolution Date Notes Provider Name and Address Organization Details Recorded Time Diabetes mellitus 67303278 Active 2022 MANNY Aguayo [facility] 08:36:43 Hypertensive disorder 24170972 Active 2022 MANNY Aguayo [facility] [...] Updated DateTime 11/26/2022 130/86 mm[Hg] MANNY PAVON [facility] [place], [address], [place] - [facility] 11/26/2022 09:15:56 Date Recorded Body height Body mass index (BMI) Body weight Pain severity - 0-10 verbal numeric rating [Score] - Reported Respiratory rate Heart rate Oxygen saturation Body temperature Systolic And Diastolic Provider Name and Address Organization Details Last Updated DateTime 161.29 cm 24.2 kg/m2 24801.3 4 g 0 18 /min 101 /min 96 % 98.4 [degF] 144/90 mm[Hg] Jordana Carbajal PA [facility] 08:39:37 Social History Question Answer Notes LastModified by [email or web address] Details LastModified Time Tobacco Smoking Status Former Smoker Jordana coffey PA - [facility] 11/26/2022 08:37:59 When Did You Quit Smoking? 16+yearssinc elastcigaret te Information not available 11/26/2022 Have You Recently Traveled Abroad? No Information not available 11/26/2022 Sex: Unknown Functional Status Question Answer Note LastModified by [email or web address] Details LastModified Time How many times per [...] ICD10 Code Diagnosis IMO Codes Diagnosis Note [id number] [facility] [address] [address] 11/16/2021 08:17:34 11/16/2021 09:20:57 [id number] [place] [address] [address] 11/26/2022 08:10:16 11/26/2022 09:17:23 Epidermoid cyst of skin 389856792 L72.0 In the right labia majora. This [...] Inability to urinate. Thank you for using [employer]! Health Concerns Section Related Observation LastModified by Organization Detai ls LastModified Time None Recorded Concern Status LastModified by Organization Details LastModified Time None Recorded Advance Directives Directive None Recorded Payers Insurance Date Sequence Insurance Name Policy Number Policy Zamarripa Covered Member ID Zamarripa Member ID Guarantor Name 11/26/2022 1 [facility] (MEDICARE REPLACEMENT/A DVANTAGE - HMO) [id number] Catherine Ponce [id number] Catherine Ponce 11/26/2022 2 MEDICARE B-[place]: [employer] Catherine Ponce [id number] Catherine Ponce Notes Date Note Type Note [...] bleeding. No urinary symptoms. MANNY PAVON [address] [place], [address], [place] - [facility] 11/26/2022 09:18:25 OBGyn Episode No OBEpisode recorded.
[2025-05-16 10:44] LABS: MANUAL DIFF FLAG NO
[2025-05-16 10:59] LABS: Hematocrit 38.0 % (37.0-47.0); Hemoglobin 11.7 g/dl (12.0-16.0); Imm Gran Abs Auto 0.01 X10*3/uL (0.00-0.03); Imm Gran Pct Auto 0.1 % (0.0-0.4); Lymphocytes Absolute Auto 1.7 X10*3/uL (1.2-4.9); Mean Corpuscular HGB Conc 30.8 g/dl (31.0-35.0); Mean Corpuscular Hemoglobin 19.1 pg (27.0-33.0); NRBC Abs Auto 0.000 X10*3/uL (0.0-0.012); NRBC Pct Auto 0.0 /100WBC (0.0-0.2); Platelet Count 395 X10*3/uL (160-400); Red Blood Count 6.14 X10*6/uL (4.20-5.50); White Blood Count 7.5 X10*3/uL (4.8-10.8)
[2025-05-16 11:11] LABS: Mean Corpuscular Volume 61.9 fL (80.0-98.0)
[2025-05-16 11:39] LABS: Microalbum/Creatinine Ratio Ur 16.2 ug/mg cr (<30)
[2025-05-16 11:59] LABS: Alanine Aminotransferase 16 U/L (0-31); Albumin Level 4.4 g/dL (3.5-5.0); Alkaline Phosphatase 70 U/L (39-117); Anion Gap 14 (12-20); Aspartate Amino Transferase 22 U/L (5-31); Blood Urea Nitrogen 16 mg/dL (9-16); Calcium 8.9 mg/dL (8.4-10.2); Carbon Dioxide 28 mmol/L (22-29); Chloride 101 mmol/L (96-108); Cholesterol 160 mg/dL (<200); Estimated Glomerular Filt Rate > 60; HDL Cholesterol 71 mg/dL (>40); Potassium 3.7 mmol/L (3.3-5.1); Sodium 139 mmol/L (135-145); Total Protein 7.0 g/dL (6.5-8.0); Triglycerides 64 mg/dL (<150)
== END 2025-05-16 07:25 | disposition home or self-care (01) ==
LOC: HO.HMGCLDS 07:24
PROVIDERS: PCP Internal Medicine; Visit Provider Internal Medicine
DX: D56.3 Thalassemia minor (principal); E78.2 Mixed hyperlipidemia; I10 Essential (primary) hypertension; E11.9 Type 2 diabetes mellitus without complications
CPT/HCPCS: 36415; 80053; 80061; 82043; 82570; 83036; 85025

== ENCOUNTER 2025-05-19 08:45 | Outpatient (AMB) | payer MEDICARE, SELFPAY ==
--- NOTE | 2025-05-19 08:51 | MHC.PC.OV ---
Vital Signs 05/19/25 08:55 Height 5 ft 3.5 in Weight 120 lb BMI 20.9 BP 108/72 Blood Pressure Location Rt brachial Position Sitting Respiration 14 Pulse 102 H Pulse Source Pulse Oximeter Pulse Oximetry (%) 96 Oxygen Delivery Method Room Air Intake Visit Reasons: dm Intake Note: diabetes follow up Game Design Instructor Required: No Allergies No Known Allergies Allergy (Verified 05/19/25 08:54) Tobacco use date assessed: 05/19/25 Fall risk assessment: No Falls in past year Last assessed Fall Risk: 05/19/25 Dental Screening Dental Screen Date: 11/14/24 HPI HPI Comments History of Present Illness Details 69 year old female with a past medical history of type 2 diabetes, hypertension, hyperlipidemia, depression, anemia, thalassemia trait presenting for physical exam Type 2 diabetes: on ozempic 0.5mg, jardiance 10, metformin 1000mg twice daily. Hemoglobin A1C 7.3. Glucose has recently improved now that she can exercise again. Goes to [facility] and [facility] with exam. No neuropathy. No issues with yeast infection. Takes glucose reading once a day fasting. On ARB, statin. CV: On losartan 25mg daily, pravastatin 40mg daily daily ASA. BP well controlled. Denies chest pain, shortness of breath. Sometimes dizzy when dehydrated or stands. MSK: Left knee with some interval improvement. Still has significant pain evening/nightime. Saw orthopedics c. She started back at the gym recently Slight anemia with labs-electropheresis c/w beta thalessemia trait Colonoscopy 01/07/17-10 year Mammogram: 01/25/2024-good No longer seeing gynaecological oncologist-stopped pap 65. ROS see HPI PHYSICAL EXAM: GENERAL: Alert and oriented x 3. NAD EYES: EOMI. Anicteric. HENT: Moist mucous membranes. No scleral icterus. No cervical lymphadenopathy. LUNGS: Clear to auscultation bilaterally. CARDIOVASCULAR: Regular rate and rhythm. No murmur. No JVD. ABDOMEN: Soft, non-tender +bs MSK: antalgic gait. FROM left knee, +anterior drawer left knee EXTREMITIES: No edema. Non-tender. SKIN: No rashes or lesions. Warm. NEUROLOGIC: No focal neurological deficits. CN II-XII grossly intact PSYCHIATRIC: Cooperative. 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 Current occupational exposures/hazards: No Cognitive needs: No Hearing needs: No Vision needs: Yes (glasses) Questionnaire Thrive Questionnaire Date Thrive assessed: 07/25/24 I am a: Patient What is your living situation today?: I have a steady place to live Within the past 12 months, did the food you bought not last and you didn't have the money to get more?: Never true Within the past 12 months, did you worry whether your food would run out before you got money to buy more?: Never true Do you have trouble paying for medicines?: No Do you have trouble getting transportation to medical appointments?: No Do you have trouble paying your heating and electricity bill?: No Do you have trouble taking care of your child, family member or friend?: No Do you have trouble with day-to-day activities such as bathing, preparing meals, shopping, managing finances, etc.?: No Are you currently unemployed and looking for a job?: No Are you interested in more education?: No Please select the resources that you would like help with: None Currently or been in a relationship where the following occur: No concerns reported THRIVE Score: 0 AUDIT C Alcohol Use Questionnaire (AUDIT-C) 1. How often do you have a drink containing alcohol?: Monthly or less 2. How many drinks containing alcohol do you have on a typical day when you are drinking?: 1 or 2 3. How often do you have six or more drinks on one occasion?: Never Total Score: 1 TERRENCE-7 AMB Questionnaire TERRENCE-7 Date TERRENCE - 7 assessed: 11/14/24 Source: Developed by Drs. Sid Figueroa, Merced Horton, Leon Harrington and colleagues, with an educational arcenio from [employer]. Physical exam (Primary Care) Vital Signs: Last Vital Signs Pulse 102 H 05/19/25 08:55 Resp 14 05/19/25 08:55 BP 108/72 05/19/25 08:55 Pulse Ox 96 05/19/25 08:55 Oxygen Delivery Method Room Air 05/19/25 08:55 BMI result Body Mass Index 20.9 Tobacco/Smoking Status: Tobacco use Status Tobacco use date assessed 05/19/25 05/19/25 08:57 Patient Tobacco Use Status Former Tobacco user 05/19/25 08:57 e-Cigarette/Vaping Use Never Used 05/19/25 08:57 Thrive Assessment: Date of Thrive Assessment Date Thrive assessed 07/25/24 05/19/25 08:57 Currently or been in a relationship where the following occur: No concerns reported Coding Level of Care Code Est Pt Level 4 (75945) Diagnoses Type 2 diabetes mellitus without complication, without long-term current use of insulin E11.9 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: without intermodal owner operator truck driver use Diabetes mellitus complication status: without complication Primary hypertension I10 Hypertension type: primary hypertension Mixed hyperlipidemia E78.2 Hyperlipidemia type: mixed hyperlipidemia Beta thalassemia trait D56.3 Tear of medial meniscus of left knee, current, unspecified tear type, subsequent encounter S83.242D Tear current or old: current Encounter type: subsequent encounter Meniscus tear of knee type: unspecified type Assessment & Plan Assessment & Plan (1) Type 2 diabetes mellitus: Code(s): E11.9 - Type 2 diabetes mellitus without complications Category: Medical Qualifiers: Diabetes mellitus prison insulin use: without intermodal owner operator truck driver use Diabetes mellitus complication status: without complication Qualified Code(s): E11.9 - Type 2 diabetes mellitus without complications (2) Hypertension: Code(s): I10 - Essential (primary) hypertension Category: Medical Qualifiers: Hypertension type: primary hypertension Qualified Code(s): I10 - Essential (primary) hypertension (3) Hyperlipidemia: Code(s): E78.5 - Hyperlipidemia, unspecified Category: Medical Qualifiers: Hyperlipidemia type: mixed hyperlipidemia Qualified Code(s): E78.2 - Mixed hyperlipidemia (4) Beta thalassemia trait: Code(s): D56.3 - Thalassemia minor Category: Medical (5) Tear of medial meniscus of left knee: Code(s): S83.242A - Other tear of medial meniscus, current injury, left knee, initial encounter Category: Medical Qualifiers: Tear current or old: current Encounter type: subsequent encounter Meniscus tear of knee type: unspecified type Qualified Code(s): S83.242D - Other tear of medial meniscus, current injury, left knee, subsequent encounter Plan DM-Slight suboptimal control though recent improvement has now back exercising. Declines med changes HTN-controlled on meds Left knee pain-continue exercises. Tramadol prn. Orders: Orders Hemoglobin A1c 3 Months E11.9 - Type 2 diabetes mellitus without complications, E78.2 - Mixed hyperlipidemia, I10 - Essential (primary) hypertension Comprehensive Met. Panel 3 Months E11.9 - Type 2 diabetes mellitus without complications, E78.2 - Mixed hyperlipidemia, I10 - Essential (primary) hypertension Medications: New tramadol 50 mg PO Q6H PRN 42 tabs 3RF pain
[2025-05-19 08:55] VITALS: BP 108/72; PULSE 102; RESP 14; O2SAT 96; BMI 20.9
--- OUTSIDE RECORDS SUMMARY | 2025-05-19 09:02 | XMS_ITS | Data Portability ---
Author Organization [id number] Address [address] [place] [address] Care Team Providers Care Drier And Pulverizer Tender Name Role Phone DARNIEL CHOWDHURY Primary Care Provider Assessment No assessment [...] By Organization Details Last Modified Time 11/26/2022 [id number] Skin Cyst: Care Instructions [email or web address] Not available 11/26/2022 09:15:35 Reason for Referral Envelope Machine Operator Referral for Ep idermoid cyst of skin Right Labia Cyst - Appears Benign. Follow up if does not open on it's own. Referring Physician: Alisson Corbett, Urgent Care, Encounter Date: 11/26/2022 Problems Name Problem SNOMED Code Status Onset Date Resolution Date Notes Provider Name and Address Organization Details Recorded Time Diabetes mellitus 15811280 Active 2022 MANNY Aguayo [facility] 08:36:43 Hypertensive disorder 97595945 Active 2022 MANNY Aguayo [facility] [...] Updated DateTime 11/26/2022 130/86 mm[Hg] MANNY PAVON [facility] [address], [place], [address], [place] - [facility] 11/26/2022 09:15:56 Date Recorded Body height Body mass index (BMI) Body weight Pain severity - 0-10 verbal numeric rating [Score] - Reported Respiratory rate Heart rate Oxygen saturation Body temperature Systolic And Diastolic Provider Name and Address Organization Details Last Updated DateTime 161.29 cm 24.2 kg/m2 14600.3 4 g 0 18 /min 101 /min 96 % 98.4 [degF] 144/90 mm[Hg] Jordana Carbajal PA [facility] 08:39:37 Social History Question Answer Notes LastModified by [employer] Details LastModified Time Tobacco Smoking Status Former Smoker Jordana coffey [place] - [facility] 11/26/2022 08:37:59 When Did You Quit Smoking? 16+yearssinc elastcigaret te Information not available 11/26/2022 Have You Recently Traveled Abroad? No Information not available 11/26/2022 Sex: Unknown Functional Status Question Answer Note LastModified by [employer] Details LastModified Time How many times per [...] ICD10 Code Diagnosis IMO Codes Diagnosis Note [id number] [facility] [address] [address] 11/16/2021 08:17:34 11/16/2021 09:20:57 [id number] [place] [address] [address] 11/26/2022 08:10:16 11/26/2022 09:17:23 Epidermoid cyst of skin 573404897 L72.0 In the right labia majora. This [...] Inability to urinate. Thank you for using [employer] Today! Health Concerns Section Related Observation LastModified by Organization Detai ls LastModified Time None Recorded Concern Status LastModified by Organization Details LastModified Time None Recorded Advance Directives Directive None Recorded Payers Insurance Date Sequence Insurance Name Policy Number Policy Zamarripa Covered Member ID Zamarripa Member ID Guarantor Name 11/26/2022 1 [facility] (MEDICARE REPLACEMENT/A DVANTAGE - HMO) [id number] Catherine Ponce [id number] Catherine Ponce 11/26/2022 2 MEDICARE [place]: [employer] Catherine Ponce [id number] Catherine Ponce Notes Date Note Type Note [...] MANNY PAVON [address] [place], [address], [place] - [facility] 11/26/2022 09:18:25 OBGyn Episode No OBEpisode recorded.
--- OUTSIDE RECORDS SUMMARY | 2025-05-19 09:02 | XMS_ITS | Clinical Summary ---
Author Organization [facility] Address [address] [place] [address] Phone Care Team Providers Care General Road Foreman Name Role Phone Simran Plaza MD Primary Care Provider [phone] Allergies No known active allergies Medications Aspirin [...] patient's age to complete this topic Insurance [facility] Medicare [facility] Medicare Care Teams General Road Foreman Relationship Specialty Start Date End Date Simran Plaza MD [address] [place] [address] PCP - General Internal Medicine 02/25/21
--- OUTSIDE RECORDS SUMMARY | 2025-05-19 09:02 | XMS_ITS | Clinical Summary ---
Author Organization [address] [facility] Address [address] [place] [address] Phone Care Team Providers Care Assistant Corporate Controller Name Role Phone Denise Gerard MD Primary Care Provider [phone] Allergies No known active allergies Medications pravastatin [...] 6mo and older 03/15/2018 Influenza, Unspecified 04/09/2023,03/06/2022, [employer] SARS-CoV-2 COVID-19, mRNA, LNP-S, preservative free 03/26/2022,09/30/2021,03/13/2021 [...] mellitus type 2, co ntrolled, without complications (CMS/[facility] V24, CMS/[facility] V28) DX:Diabetes mellitus type 2, controlled, without complications (HCC) Dyslipidemia DX:Dyslipidemia Uncontrolled type 2 diabetes mellitus with hyperglycemia (CMS/[facility] V24, CMS/[facility] V28) 02/24/2019 DX:Uncontrolled type 2 diabe [...] spine and left hip were obtained using [employer] Discovery W (S/N [id number]). COMPARISON: March 27, 2021 FINDINGS: L1-L4 BMD: [...] lumbar spineand left hip were obtained using [employer] Discovery W (S/N [id number]). COMPARISON: March 27, 2021 FINDINGS: L1-L4 BMD: [...] recommendations were communicated to the patient via biomedical engineering technologist. BI-RADS: Category 1: Negative Procedure Note [...] currently active code status orders. Care Teams Assistant Corporate Controller Relationship Specialty Start Date End Date Denise Gerard MD [address] [place] [id number] PCP - General Internal Medicine 05/31/24
--- OUTSIDE RECORDS SUMMARY | 2025-05-19 09:02 | XMS_ITS | Patient Health Record ---
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
== END 2025-05-19 09:12 | disposition home or self-care (01) ==
LOC: HO.HMCFM 08:46
PROVIDERS: PCP Internal Medicine; Visit Provider Internal Medicine
DX: E11.9 Type 2 diabetes mellitus without complications (principal); I10 Essential (primary) hypertension; E78.2 Mixed hyperlipidemia; D56.3 Thalassemia minor; S83.242D Other tear of medial meniscus, current injury, left knee, subsequent encounter

== ENCOUNTER → 2025-05-19 08:45 | Outpatient (BNVA) | payer MEDICARE, SELFPAY | PROVIDERS: PCP Internal Medicine; Visit Provider Internal Medicine | DX: E11.9 Type 2 diabetes mellitus without complications (principal); I10 Essential (primary) hypertension; E78.2 Mixed hyperlipidemia; D56.3 Thalassemia minor; S83.242D Other tear of medial meniscus, current injury, left knee, subsequent encounter | CPT/HCPCS: 99212 ==